=== PATIENT | male | born 1950 | race Caucasian/White ===

== ENCOUNTER 2020-06-10 08:11 | Day surgery (SDC) | payer MEDICARE, SELFPAY ==
[2020-06-04 09:33] LABS: Hematocrit 43.1 % (40-54); Hemoglobin 14.3 g/dL (13.0-16.5); Mean Corp Hgb Conc 33.2 g/dL (32-36); Mean Corpuscular Hgb 31.4 pg (27.0-32.0); Mean Corpuscular Volume 94.5 fL (80-94); Mean Platelet Vol. 10.9 fl (6.2-12.0); Platelet Count 238 K/mm3 (150-450); RBC Distribution Width CV 12.3 % (11.6-14.6); RBC Distribution Width SD 42.6 fl (35.1-43.9); Red Blood Count 4.56 M/mm3 (4.6-6.2); White Blood Count 9.2 K/mm3 (4.4-11.0)
[2020-06-04 09:39] LABS: Partial Thromboplast Time 31.4 Seconds (24.1-36.2)
--- NOTE | 2020-06-04 10:54 | EKG12_ITS ---
Test Reason : PREOP Blood Pressure : / mmHG Vent. Rate : 076 BPM Atrial Rate : 076 BPM P-R Int : 120 ms QRS Dur : 084 ms QT Int : 384 ms P-R-T Axes : 065 043 055 degrees QTc Int : 432 ms Normal sinus rhythm Normal ECG Confirmed by LYNN WISE, PUJA ([id number]), writer editor JODI FORTE ([id number]) on 06/05/2020 1:11:04 PM Referred By: Vick Reed Confirmed By:ETHEL BAILEY MD
--- NOTE | 2020-06-10 | BLB_PTH ---
PATIENT: JAYLA SCHWARZ LOC: [facility] [place] U[place][id number] AGE/SX: 70/M ROOM: RE06/10/[address]: Dr. Vick Reed MD : 1950 BED: DIS: 06/10/2020 SPEC #: [id number] RECD: 06/11/20 08:43 STATUS: YOLIS REHema #: [id number] VANNESSA: 06/10/20 00:[address]: Vick Reed DEPT: SURGICAL PATHOLOGY RECD BY: Sintia Vasquez ENTERED: 06/11/20 08:45 SP TYPE: TURB OTHR DR: Dr. Haresh Almanzar MD Tissues: Urinary bladder, NOS Procedures: Surgery Specimen Level V HEADER OPERATION: Cysto, transurethral resection bladder, Olympus PRE-OP DIAGNOSIS: Bladder mass TISSUE SUBMITTED: Bladder tumor MICROSCOPIC DIAGNOSIS Bladder tumor, TUR: Papillary urothelial carcinoma. See cancer summary in the comment section. SJ:josie 06/12/20 COMMENT BLADDER CANCER (TUR) SUMMARY Procedure: Transurethral resection of bladder (TURBT) Tumor site: Not specified Histologic type: Papillary urothelial carcinoma, noninvasive Histologic grade: Low grade (2/3) Tumor configuration: Papillary Muscularis propria presence: Muscularis propria (detrusor muscle) is present and free of tumor. Tumor extension: Noninvasive papillary carcinoma. Additional pathologic findings: Chronic inflammation. The above summary is in compliance with [employer] [employer] (CAP) Cancer Protocols Checklist and [place] Joint Committee on Cancer (AJCC), Staging Manual, 8th Ed. MICROSCOPIC DESCRIPTION Slides are reviewed. GROSS DESCRIPTION Received in fixative is one container labeled with the patient's name and designated bladder tumor. The specimen consists of multiple irregular fragments of light medley soft tissue that in aggregate measure 2.5 x 1 x 0.2 cm. The specimen is totally submitted in one cassette. / MELCHOR:josie 06/11/20 TC:0 CPT: 19273
--- NOTE | 2020-06-10 07:54 | PCM.HP.STD ---
Problem List (1) Bladder mass Status: Acute History of Present Illness Date of Admission: 06/10/20 Chief Complaint: Large bladder mass The patient is a 70 year old male with a history of smoking who on CAT scan was found to have a large bladder mass today we will proceed with transurethral resection of a bladder tumor Past Medical History Allergies No Known Allergies Allergy (Verified 06/03/20 08:18) Home Medications: Ambulatory Orders Medication Instructions Recorded Phenytoin Na [Dilantin] 200 mg PO QHS 11/07/14 Phenytoin Na [Dilantin] 300 mg PO BREAKFAST 11/07/14 Atorvastatin Calcium [Lipitor] 20 mg PO QHS 06/03/20 Surgical History: no surgical history Smoking Status: Former smoker Tobacco Use: Non-smoker Review of Systems Constitutional: Denies: Chills, Fever, Weight Change HEENT: Denies: Head Aches, Sinus Congestion, Sinus Drainage Cardiovascular: Denies: Chest Pain, Palpitations Respiratory: Denies: Cough, Shortness of breath at rest, Sputum production Gastrointestinal: Denies: Abdominal Pain, Nausea, Vomiting Genitourinary: Denies: Dysuria Musculoskeletal: Denies: Joint Pain, Joint Tenderness Skin: Denies: Rash, Wounds Neurological: Denies: Numbness, Tingling, Focal weakness Psychiatric: Denies: Anxiety, Depression, Homicidal Ideations, Suicidal Ideations Hematologic/ Lymphatic: Denies: Easy Bruising, Easy Bleeding VTE Information - Inpt Only VTE Present on Admission: No Patient Problems: Active and Suspected Problems Bladder mass (Acute) - Physical Exam General: Alert, Oriented x3, Cooperative HEENT: Atraumatic, PERRLA, EOMI, Normocephalic Neck: Supple, No JVD, Negative Carotid Bruits Lungs: Clear to auscultation, Normal air movement Cardiovascular: Regular rate, No murmurs Abdomen: Bowel Sounds Present, Soft, Non Tender Extremities: No edema, Capillary Refill Less than 3 Seconds Skin: No rashes, No breakdown Musculoskeletal: No Tenderness to Palpation of Joints or Extremities Neurological: Cranial nerves II-XII grossly intact Psych/Mental Status: Normal Affect, Appropriate Microbiology Past 72 Hours 06/09/20 09:45 Interface Orders SARS-CoV-2 Antigen (Rapid) - Final Current Medications Mitomycin 40 mg/ Sodium (Chloride 40 ml/ N/A) 40 mls @ 2,400 mls/hr INSTILLAT X1 ONE Stop: 06/10/20 11:16 Assessment/Plan All Active Problems Bladder mass (Acute) Plan to proceed with transurethral resection of a bladder tumor
--- NOTE | 2020-06-10 07:57 | DCINST_ITS ---
Discharge Diet: No Restrictions Discharge Activity: Return to Normal Activity, May Not Drive - for 2 days., May not drive while taking narcotic pain medications. Additional Activity Instructions:: f you have a catheter, remove on ___. If you have any problems after catheter is removed, call [phone] and ask for your doctor to be paged. Please be aware that pain medications may cause nausea. You should typically eat light foods as you take your pain medication. Pain medication may cause constipation, if this is a problem for you, please discuss with your doctor. Call your doctor if your incision/area has: Continuous Slow Oozing Suture Line Care: Avoid Pulling/Pushing, Avoid Pinching/Bending Allergies/Adverse Reactions: Allergies No Known Allergies Allergy (Verified 06/03/20 08:18) Medications to take at Discharge Phenytoin Na [Dilantin] 200 mg PO QHS 11/07/14 Phenytoin Na [Dilantin] 300 mg PO BREAKFAST 11/07/14 Atorvastatin Calcium [Lipitor] 20 mg PO QHS 06/03/20 Ciprofloxacin [Cipro] 500 mg PO BID #14 tab 06/10/20 Ibuprofen [Motrin] 600 mg PO Q6H PRN PRN 7 Days #20 tab 06/10/20 The following prescriptions were given: Ciprofloxacin [Cipro] 500 mg PO BID #14 tab Transmission Status: Pending to [facility] [place] [address] Ibuprofen [Motrin] 600 mg PO Q6H PRN PRN 7 Days #20 tab PRN Reason: Pain 1-10 Or Fever Transmission Status: Pending to [facility] [place] [address] Primary Care Physician: Haresh Almanzar MD [Primary Care Provider] - Test Results: Test results from this visit will be discussed in further detail at your follow- up appointment, if applicable. Please Follow Up With: Vick Reed MD When: in 2 weeks, please call to make an appointment.
[2020-06-10 09:35] VITALS: BP 133/91; PULSE 97; RESP 16; TEMP 36.2; O2SAT 100; BMI 24.6
[2020-06-10] MEDS: Lactated Ringers 1,000 ML 100 ML IV (09:53)
[2020-06-10] MEDS: Cefazolin 2 GM in 0.9% Normal Saline 100 ML IV (12:48)
[2020-06-10] MEDS: Lubricating Jelly 60 GM Tube 30 GM TOPICAL (13:03)
--- NOTE | 2020-06-10 13:17 | PCM.OPRPT ---
Problem List (1) Bladder mass Status: Acute Report of Operation Date of Procedure: 06/10/20 Pre-Operative Diagnosis: Bladder tumor Post-Operative Diagnosis: Same Surgery/Procedure Performed:: Transurethral section of bladder tumor instillation mitomycin-C Description of Surgical Findings:: 70-year-old male was found to have a tumor in his bladder on cystoscopy and also on CAT scan. He was brought to the operating room underwent general anesthesia penis and testicles were prepped and draped in usual sterile fashion I went into the bladder the 24 Malag[place] noncontinuous flow Olympus resectoscope I inspected the entire bladder the trigone was clear the left and right ureter orifice were identified he had a tumor on the left lateral wall the bladder was measured using the loop, the tumor was 4 cm in size. He then underwent paralysis. I then resected the tumor with the resectoscope down to the muscle fibers it appeared to be a noninvasive bladder tumor. I then cauterized the base of resection extensively. The left and right ureter orifice were not injured or involved in the tumor resection. I then asked Laya to all the chips of the bladder handed off as a specimen. And then I put a catheter in the bladder and instilled 50 cc of mitomycin-C into the bladder and the patient's bladder was then left full with the mitomycin and he was awakened from anesthetic taken back to PACU in good condition. Type of Anesthesia:: General Drains: none - Admit VTE Documentation VTE Present on Admission: No VTE Mechan Device Prophylaxis: SCD's
[2020-06-10 13:30] VITALS: BP 133/91; BP 156/79; PULSE 67; RESP 18; TEMP 36.3; O2SAT 100
[2020-06-10 13:45] VITALS: BP 133/91; BP 162/124; PULSE 66; RESP 18; O2SAT 99
[2020-06-10 14:00] VITALS: BP 133/91; BP 164/78; PULSE 71; RESP 18; O2SAT 100
[2020-06-10 14:06] VITALS: BP 133/91; BP 167/75; PULSE 71; RESP 18; TEMP 36.2; O2SAT 100
[2020-06-10 14:53] VITALS: BP 132/94; BP 133/91; PULSE 87; RESP 16; TEMP 36.2; O2SAT 100
== END 2020-06-10 14:53 | disposition home or self-care (01) ==
LOC: SDC 08:13 → AC 08:13
PROVIDERS: Anesthesiology; PCP Family Medicine; Referring Provider Urology; Visit Provider Urology
PROC: 0T5B8ZZ Destruction of Bladder, Via Natural or Artificial Opening Endoscopic (ICD-10-PCS; CPT 51720; principal; 2020-06-10 11:05)
DX: C67.9 Malignant neoplasm of bladder, unspecified (principal); G47.33 Obstructive sleep apnea (adult) (pediatric); E78.5 Hyperlipidemia, unspecified; Z82.49 Family history of ischemic heart disease and other diseases of the circulatory system; G40.909 Epilepsy, unspecified, not intractable, without status epilepticus; Z87.891 Personal history of nicotine dependence
CPT/HCPCS: 00912; 51720; 52235; 36415; 85027; 85730; 87426; 88307; 93005; C9803; J7120; J2405; J3490; J9280

== ENCOUNTER → 2021-01-21 10:54 | Outpatient (CLI) | payer MEDICARE, SELFPAY ==
--- NOTE | 2021-01-21 09:17 | CYSPIN_PTH ---
PATIENT: JAYLA SCHWARZ LOC: [facility] U#:[id number] AGE/SX: 75/M ROOM: RE01/21/[address]: Dr. Vick Reed MD : 1950 BED: DIS: SPEC #: [id number] RECD: 01/21/21 12:40 STATUS: YOLIS OSMAN #: [id number] VANNESSA: 01/21/21 09:[address]: Vick Reed DEPT: CYTOLOGY RECD BY: Shakila Sadler ENTERED: 01/21/21 12:40 SP TYPE: CYSPIN FL OTHR DR: Dr. Haresh Almanzar MD Tissues: Urine Procedures: Pap Stain (control) Special Stain Group II Cytospin Fluid HEADER OPERATION: Not noted PRE-OP DIAGNOSIS: Malignant neoplasm of bladder TISSUE SUBMITTED: Urine for cytology DIAGNOSIS CYTOLOGY Urine for cytology (cytospin): Atypical urothelial cells suspicious for urothelial neoplasm. AM:josie 01/22/2021 COMMENT Reference is made to the patient?s previous urinary bladder, TUR ([id number]) in which papillary urothelial carcinoma (low grade) was identified. Case has been reviewed in consultation with Dr. Seals who concurs with the above diagnosis. IDC:SJ CYTOLOGY STUDY Slides are reviewed. CYTOLOGY GROSS Received is 100 ml of light yellow cloudy fluid labeled with the patient's name and and designated per the requisition as urine. Submitted for cytology preparation. / josie 01/21/2021 TC:? CPT: 79489
[2021-01-21 11:33] LABS: Cytology, Body Fluid / CSF SEE PATHOLOGY REPORT
== END ==
PROVIDERS: PCP Family Medicine; Visit Provider Urology
DX: C67.2 Malignant neoplasm of lateral wall of bladder (principal)
CPT/HCPCS: 88108; 88313

== ENCOUNTER 2021-03-10 08:55 | Day surgery (SDC) | payer MEDICARE, SELFPAY ==
[2021-03-04 11:13] LABS: Hematocrit 41.9 % (40-54); Mean Corp Hgb Conc 33.4 g/dL (32-36); Mean Corpuscular Hgb 31.5 pg (27.0-32.0); Mean Corpuscular Volume 94.2 fL (80-94); Mean Platelet Vol. 11.2 fl (6.2-12.0); Platelet Count 185 K/mm3 (150-450); RBC Distribution Width CV 12.9 % (11.6-14.6); RBC Distribution Width SD 44.4 fl (35.1-43.9); Red Blood Count 4.45 M/mm3 (4.6-6.2); White Blood Count 8.1 K/mm3 (4.4-11.0)
[2021-03-04 11:26] LABS: Partial Thromboplast Time 34.8 Seconds (24.1-36.2)
[2021-03-10 09:20] VITALS: BP 147/78; PULSE 77; RESP 18; TEMP 36.1; O2SAT 100; BMI 26.4
[2021-03-10] MEDS: Lactated Ringers 1,000 ML 100 ML IV (09:20)
--- NOTE | 2021-03-10 10:55 | BLB_PTH ---
PATIENT: JAYLA SCHWARZ LOC: [place] U#:[id number] AGE/SX: 71/M ROOM: RE03/10/[address]: Dr. Vick Reed MD : 1950 BED: DIS: 03/10/2021 SPEC #: [id number] RECD: 03/10/21 15:12 STATUS: YOLIS BREWER #: [id number] VANNESSA: 03/10/21 10:[address]: Vick Reed DEPT: SURGICAL PATHOLOGY RECD BY: Shakila Sadler ENTERED: 03/11/21 12:27 SP TYPE: TURB OTHR DR: Dr. Haresh Almanzar MD Tissues: Urinary bladder, NOS Procedures: Surgery Specimen Level V HEADER OPERATION: Bladder biopsy PRE-OP DIAGNOSIS: Bladder mass TISSUE SUBMITTED: Multiple bladder biopsies MICROSCOPIC DIAGNOSIS Bladder, biopsy: Fragments of urothelial mucosa with epithelial hyperplasia and mild atypia. Negative for malignancy. See comment. SJ:josie 03/12/2021 COMMENT Detrusor muscle is present in the specimen. Please make reference to previous specimens ([id number]) bladder tumor, TUR with diagnosis of ?papillary urothelial carcinoma? and ([id number]) urine for cytology with diagnosis of ?atypical urothelial cells suspicious for urothelial neoplasm.? Case has been reviewed in consultation with Dr. Taylor who concurs with the above diagnosis. IDC:AM MICROSCOPIC DESCRIPTION Slides are reviewed. GROSS DESCRIPTION Received in fixative is one container labeled with the patient's name and designated multiple bladder biopsies. The specimen consists of multiple irregular fragments of medley soft tissue that in aggregate measure 0.5 x 0.1 x 0.1 cm. The specimen is totally submitted in one cassette. / MELCHOR:josie 03/11/21 TC:5 CPT: 37747
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
[2021-03-10] MEDS: Cefazolin 2 GM in 0.9% Normal Saline 100 ML IV (12:42)
[2021-03-10] MEDS: Lubricating Jelly 60 GM Tube 30 GM TOPICAL (12:55)
--- NOTE | 2021-03-10 13:11 | PCM.DC ---
Discharge Instructions Diet Discharge Diet: No restrictions Activity Discharge Activity: Return to Normal Activity and May Not Drive (while taking narcotic pain medications.) Dressing / Incision Call your doctor if you observe: Fever of 101 or Higher Follow Up Care Please Follow Up With: Vick Reed MD When: Call [phone] for an appointment Test Results: Test results from this visit will be discussed in further detail at your follow-up appointment, if applicable. Discharge Plan Admission Primary Reason for Your Visit: bladder biopsy and fulguration Attending Provider: Vick Reed Primary Care Provider: Haresh Almanzar Discharge Orders/Prescriptions Prescriptions: New ciprofloxacin HCl [Cipro] 500 mg tablet 500 mg PO BID Qty: 10 RF: 0 Continued phenytoin sodium extended 100 MG capsule 300 mg PO BREAKFAST RF: 0 phenytoin sodium extended 100 MG capsule 200 mg PO QHS RF: 0 atorvastatin 20 MG tablet 20 mg PO QHS RF: 0 Referrals / Follow Up: Haresh Almanzar MD [Primary Care Provider] - Vick Reed MD [STAFF PHYSICIAN] - Disposition Disposition (needs filled in before D/C Order can be placed): Home, Self Care
--- NOTE | 2021-03-10 13:12 | PCM.OPRPT ---
Report of Operation Date of Procedure: 03/10/21 Pre-Operative Diagnosis: History of bladder cancer abnormal cytology multiple bladder lesions Post-Operative Diagnosis: Same multiple bladder lesions Surgery/Procedure Performed:: Cystoscopy bladder biopsy of multiple sites in the bladder and cauterization of multiple sites in the bladder Description of Surgical Findings:: Patient has a history of bladder cancer underwent resection about 6 months ago in the office there was no clear tumors when I looked inside the bladder but on cytology they had atypical suspicious looking cytologies were taken back to surgery today to look of the bladder. Patient was taken back to the operating room at the smooth induction of general anesthesia he was placed in dorsolithotomy position. The penis and testicles were prepped and draped in usual sterile fashion when the bladder with a 21 Kiny[place]anda rigid cystourethroscope inspected the entire bladder there were no visible tumors but there was small little reddish lesions in multiple areas throughout the bladder very concerning for satellites sites of bladder cancer so biopsy was taken of 3 different sites all put on the same Telfa and sent off to pathology I then went and cauterize all these biopsy sites I then went to the bladder and the selectively cauterized as many these lesions that I could see using both white light and blue light cystoscopy. At the end of the session there was no bleeding patient's bladder was drained anesthetic was reversed taken back to PACU in good condition will follow up to review the biopsies. Type of Anesthesia: General Drains: none Admit VTE Documentation VTE Present on Admission: No VTE Mechan Device Prophylaxis: SCD's
[2021-03-10 13:24] VITALS: BP 110/73; BP 147/78; PULSE 64; RESP 16; TEMP 36.1; O2SAT 97
[2021-03-10 13:30] VITALS: BP 125/75; BP 147/78; PULSE 70; RESP 16; O2SAT 98
[2021-03-10 13:44] VITALS: BP 140/72; BP 147/78; PULSE 66; RESP 16; O2SAT 100
[2021-03-10 13:46] VITALS: BP 136/70; BP 147/78; PULSE 64; RESP 16; TEMP 36.1; O2SAT 97
[2021-03-10 14:20] VITALS: BP 147/78; BP 163/74; PULSE 79; RESP 16; TEMP 36.3; O2SAT 100
== END 2021-03-10 14:26 | disposition home or self-care (01) ==
LOC: SDC 08:56 → AC 08:56
PROVIDERS: Anesthesiology; PCP Family Medicine; Referring Provider Urology; Visit Provider Urology
PROC: 0TBB8ZZ Excision of Bladder, Via Natural or Artificial Opening Endoscopic (ICD-10-PCS; CPT 52204; principal; 2021-03-10 10:45)
DX: N32.9 Bladder disorder, unspecified (principal); Z85.51 Personal history of malignant neoplasm of bladder; G40.909 Epilepsy, unspecified, not intractable, without status epilepticus; F17.210 Nicotine dependence, cigarettes, uncomplicated
CPT/HCPCS: 52204; 36415; 85027; 85730; 88307; J7120; J2405

== ENCOUNTER 2021-09-07 11:42 | Emergency (ER) | payer MEDICARE, SELFPAY ==
[2021-09-07 11:42] VITALS: BP 95/84; PULSE 88; RESP 18; TEMP 35.6; O2SAT 97; BMI 27.4
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
--- NOTE | 2021-09-07 12:28 | RAD_ITS ---
STUDY: X-RAY - LEFT ANKLE REASON FOR EXAM: Male, 71 years old. Pain following a fall. TECHNIQUE: 3 view(s) of the ankle. COMPARISON: None. FINDINGS: Nondisplaced oblique fracture of the distal fibular metaphysis. Nondisplaced transverse fracture of the medial malleolus. Mild asymmetry of the ankle mortise. Normal visualized talus and calcaneus. The visualized subtalar, talonavicular, calcaneocuboid and tarsal articulations are normal. Soft tissue swelling. RAD/Ankle min 3 Views IMPRESSION: Nondisplaced oblique fracture of the distal fibular metaphysis with a transverse fracture of the medial malleolus. Asymmetry of the ankle mortise. Soft tissue swelling. Electronically Signed: Sai Pizarro MD at 12:56 EST ,
[2021-09-07] MEDS: HYDROcodone Bitartrate/Apap 5/325 Tablet PO (13:52)
== END 2021-09-07 14:41 | disposition home or self-care (01) ==
PROVIDERS: Emergency Provider Emergency Medicine; PCP Family Medicine; Visit Provider Emergency Medicine
DX: S82.52XA Displaced fracture of medial malleolus of left tibia, initial encounter for closed fracture (principal); W00.0XXA Fall on same level due to ice and snow, initial encounter; F17.210 Nicotine dependence, cigarettes, uncomplicated
CPT/HCPCS: 73610; 99284

== ENCOUNTER 2021-09-24 16:33 | Outpatient (CLI) | payer MEDICARE, SELFPAY ==
[2021-09-24 17:45] LABS: Absolute Lymphocyte Count 2.68 X10^3/uL (0.83-4.51); Absolute Neutrophil Count 7.4 X10^3/uL (2.0-7.7); Basophil# 0.04 X10^3/uL; Basophil% 0.4 % (0-1); Eosinophil# 0.11 X10^3/uL; Hematocrit 38.9 % (40-54); Hemoglobin 13.2 g/dL (13.0-16.5); Lymphocyte # 2.68 X10^3/ul (0.83-4.51); Mean Corp Hgb Conc 33.9 g/dL (32-36); Mean Corpuscular Hgb 31.3 pg (27.0-32.0); Mean Corpuscular Volume 92.2 fL (80-94); Mean Platelet Vol. 11.4 fl (6.2-12.0); Monocyte# 0.94 X10^3/uL; Monocyte% 8.4 % (0-10); NRBC Flagged by Analyzer 0 % (0-5); Neutrophil # 7.36 X10^3/uL (2.7-7.7); Neutrophil % 65.8 % (47-70); Platelet Count 274 K/mm3 (150-450); RBC Distribution Width SD 43.5 fl (35.1-43.9); Red Blood Count 4.22 M/mm3 (4.6-6.2); White Blood Count 11.2 K/mm3 (4.4-11.0)
[2021-09-24 18:09] LABS: ALB/GLOB Ratio 0.9 RATIO (0.9-2.4); AST(SGOT) 9 U/L (15-37); Alanine Aminotransfer ALT/SGPT 22 U/L (16-61); Albumin, Serum 3.7 g/dL (3.2-5.0); Alkaline Phosphatase 212 U/L (45-117); Anion Gap 7 (5-15); BUN 10 mg/dL (7-18); BUN/Creat Ratio 15.4 RATIO (10-20); Calcium,Total 9.3 mg/dL (8.5-10.1); Chloride 106 mmol/L (98-107); Creatinine, Serum 0.65 mg/dL (0.70-1.30); EST Glomerular Filtration Rate 129 mL/min (>60); Est Glom Filt Rate - Afr Amer 156 mL/min (>60); Glucose 101 mg/dL (74-106); Protein, Total 7.7 g/dL (6.4-8.2); Sodium Level 138 mmol/L (136-145)
[2021-09-24 18:23] LABS: Phenytoin (Dilantin) Level 7.9 mL (10.0-20.0)
== END 2021-09-24 23:59 | disposition home or self-care (01) ==
LOC: MTLAB 16:35
PROVIDERS: PCP Family Medicine; Referring Provider Family Medicine; Visit Provider Family Medicine
DX: Z01.818 Encounter for other preprocedural examination (principal)
CPT/HCPCS: 36415; 80053; 80185; 85025

== ENCOUNTER 2024-09-18 17:49 | Inpatient (IN) | payer MEDICARE, SELFPAY ==
[2024-09-18] VITALS (11 sets, daily range): BP systolic 143–196; BP diastolic 73–91; PULSE 85–102; RESP 13–18; TEMP 36.4–37.1; O2SAT 97–100; BMI 24.7; BMI 27.3
--- NOTE | 2024-09-18 17:54 | CT_ITS ---
PROCEDURE: STROKE BRAIN/HEAD WITHOUT CONT REASON FOR EXAM: Neurological deficit. TECHNIQUE: Head CT was obtained without IV contrast. Multiplanar reformats were generated. One or more dose reduction techniques were used (e.g., Automated exposure control, adjustment of the mA and/or kV according to patient size, use of iterative reconstruction technique). COMPARISON: None. FINDINGS: No acute intracranial hemorrhage or extra-axial collection. Mild encephalomalacia is noted in the high parietal lobes, right worse than left. Ramos-white matter differentiation is otherwise normal and there are no CT findings for acute territorial infarct. Ventricles are normal in size and configuration, without midline shift or mass effect. Calcifications are noted in the carotid and right vertebral arteries. Calvarium is intact. Imaged globes and orbits are normal. Imaged paranasal sinuses and mastoid air cells are clear. CT/STROKE Brain/Head without Cont IMPRESSION: NO ACUTE INTRACRANIAL HEMORRHAGE. NO CT FINDINGS FOR TERRITORIAL INFARCT AT TH IS TIME. MILD ENCEPHALOMALACIA IN THE HIGH PARIETAL LOBES BILATERALLY. Reading Location: [id number]
--- NOTE | 2024-09-18 18:00 | CT_ITS ---
PROCEDURE: STROKE CTA HEAD AND NECK W/CON REASON FOR EXAM: Neurological deficit. Acute stroke suspected. TECHNIQUE: CTA imaging of the head and neck from the aortic arch to the skull vertex with intravenous contrast. 3D reconstructions. Percentage of carotid stenosis is based on NASCET criteria. Dose reduction techniques include automated exposure control and/or adjustment of mA and/or kv according to patient size and or use of iterative reconstructive technique CONTRAST: 100 milliliters Isovue 370 COMPARISON: None. FINDINGS: CTA NECK: Aortic Arch: Normal size and branching pattern. No significant atherosclerotic plaque. Brachiocephalic and Subclavians: Unremarkable RIGHT Carotid: Right CCA: Mildly atherosclerotic without significant stenosis Right ICA: 75 percent stenosis due to calcified atherosclerotic plaque Maximum stenosis (NASCET): 75 % Right ECA: Unremarkable. LEFT Carotid: Left CCA: Minimal atherosclerosis Left ICA: Mild atherosclerosis at the origin Maximum stenosis (NASCET): <50 percent % Left ECA: Unremarkable. Vertebrals: Codominant. Arise from the subclavians. Both vertebrals form the basilar. RIGHT Vertebral: Mild atherosclerosis at the origin with less than 50 percent stenosis. LEFT Vertebral: Approximately 75 percent stenosis at the origin due to calcified atherosclerotic plaque CTA HEAD: No intracranial aneurysms or large vascular malformations are identified. Anterior cerebral arteries: Unremarkable. Middle cerebral arteries: Unremarkable. Basilar artery: Unremarkable. Posterior cerebral arteries: Unremarkable. Other major branches of the posterior circulation: Unremarkable. Major venous structures: Unremarkable. Other findings: Probable mucocele in the right lateral oropharynx measuring 1.6 x 1.1 centimeters lung apices are emphysematous and clear. Bones are unremarkable. Asymmetric appearance to the vocal folds CT/STROKE CTA Head AND Neck W/Con IMPRESSION: RIGHT CAROTID: 75 PERCENT STENOSIS DUE TO CALCIFIED ATHEROSCLEROTIC PLAQUE. LEFT CAROTID: LESS THAN 50 PERCENT STENOSIS VERTEBRALS: ATHEROSCLEROTIC AT THE ORIGINS, UP TO 75 PERCENT STENOSIS ON THE LE FT SIDE. INTRACRANIAL: NEGATIVE FOR LARGE VESSEL OCCLUSION. ASYMMETRIC APPEARANCE TO THE VOCAL FOLDS. PROBABLE MUCOCELE IN THE RIGHT POSTE RIOR LATERAL PHARYNGEAL WALL MEASURING 1.6 X 1.1 CENTIMETERS. CORRELATION WITH DIRECT VISUALIZATION RECOMMENDED. Reading Location: [id number]
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
[2024-09-18 18:24] LABS: Absolute Lymphocyte Count 1.81 X10^3/uL (0.83-4.51); Basophil# 0.02 X10^3/uL; Basophil% 0.2 % (0-1); Eosinophil# 0.04 X10^3/uL; Eosinophils% 0.5 % (0-5); Hematocrit 37.2 % (40-54); Hemoglobin 12.9 g/dL (13.0-16.5); Lymphocyte # 1.81 X10^3/ul (0.83-4.51); Lymphocyte % 21.4 % (19-41); Mean Corp Hgb Conc 34.7 g/dL (32-36); Mean Corpuscular Hgb 31.8 pg (27.0-32.0); Mean Corpuscular Volume 91.6 fL (80-94); Mean Platelet Vol. 11.1 fl (6.2-12.0); Monocyte# 0.59 X10^3/uL; NRBC Flagged by Analyzer 0 % (0-5); Neutrophil # 5.97 X10^3/uL (2.7-7.7); Neutrophil % 70.5 % (47-70); Platelet Count 188 K/mm3 (150-450); RBC Distribution Width CV 12.9 % (11.6-14.6); RBC Distribution Width SD 43.3 fl (35.1-43.9); Red Blood Count 4.06 M/mm3 (4.6-6.2); White Blood Count 8.5 K/mm3 (4.4-11.0)
[2024-09-18 18:38] LABS: Partial Thromboplast Time 28.2 Seconds (24.1-36.2)
[2024-09-18 18:41] LABS: International Normalized Ratio 1.1; Prothrombin Time (Protime)PT. 14.6 SECONDS (11.7-14.9)
[2024-09-18 18:46] LABS: Anion Gap 6 (5-15); BUN 17 mg/dL (7-18); BUN/Creat Ratio 21.7 RATIO (10-20); Calcium,Total 8.8 mg/dL (8.5-10.1); Chloride 108 mmol/L (98-107); Creatinine, Serum 0.78 mg/dL (0.70-1.30); EST Glomerular Filtration Rate 103 mL/min (>60); Est Glom Filt Rate - Afr Amer 125 mL/min (>60); Estimated Creatinine Clearance 71.54 ml/min; Glucose 130 mg/dL (74-106); Potassium 4.1 mmol/L (3.5-5.1); Sodium Level 138 mmol/L (136-145); Troponin-I HS 6 pg/mL (3.0-78.0)
--- NOTE | 2024-09-18 19:12 | RAD_ITS ---
PROCEDURE: CHEST 1 VIEW REASON FOR EXAM: Stroke. Neuro deficit. TECHNIQUE: Frontal view of the chest. COMPARISON: None available. FINDINGS: Lungs are mildly hyperinflated and clear. No pleural effusion or pneumothorax. Normal heart size. Mildly tortuous and atherosclerotic aorta. No acute osseous or upper abdominal abnormality is seen. RAD/Chest 1 View IMPRESSION: HYPERINFLATED LUNGS. NO ACUTE ABNORMALITY. Reading Location: [id number]
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
--- NOTE | 2024-09-18 21:07 | ECHOCS_ITS ---
Reason For Study Reason For Study: TIA/CVA Procedure This was a 2D Doppler, Color Flow transthoracic echocardiogram. The study was technically difficult. Contrast injection was performed. Exam performed portable in patient room. Left Ventricle Normal size and thickness. Left ventricular systolic function is normal. The left ventricular ejection fraction is 65 %. Normal diastology for age. Right Ventricle Normal right ventricle. Atria The left and right atria are normal. Mitral Valve The mitral valve is structurally normal. No prolapse or stenosis seen. Tricuspid Valve Trivial tricuspid valve insufficiency. Unable to estimate RV systolic pressure due to insufficient tricuspid regurgitant envelope. Aortic Valve Trisinus/trileaflet aortic valve. Mild (1+) aortic valve insufficiency. Pulmonic Valve The pulmonic valve is not well visualized. Great Vessels Normal sized aortic root. Pericardium/Pleural No pericardial effusion. Medication Diluted definity 2.5ml given slow IV push to enhance endocardial definition. MMode/2D Measurements & Calculations LVIDd: 4.7 cm IVSd: 0.91 cm Ao root diam: 3.5 cm LVIDs: 3.1 cm LVPWd: 0.83 cm RVDd: 3.6 cm FS: 34.5 % LAV(MOD-bp): 33.3 ml LVAd ap4: 28.8 cm2 SV(MOD-sp4): 58.1 ml LAV(MOD-bp) Indexed: 18.6 ml/m2 LVLd ap4: 7.7 cm SI(MOD-sp4): 32.4 ml/m2 LAV(MOD-sp2): 36.2 ml EDV(MOD-sp4): 88.2 ml LAV(MOD-sp4): 28.5 ml EDV(sp4-el): 91.3 ml LVAs ap4: 14.1 cm2 LVLs ap4: 5.7 cm ESV(MOD-sp4): 30.1 ml ESV(sp4-el): 29.4 ml EF(MOD-sp4): 65.9 % EF(sp4-el): 67.8 % SV(sp4-el): 61.9 ml LA A4 area: 12.2 cm2 LA dimension(2D): 3.8 cm RA A4 area: 15.7 cm2 TAPSE: 2.0 cm Time Measurements MV dec time: 0.25 sec Doppler Measurements & Calculations MV E max sachin: 75.2 cm/sec Lat Peak E' Sachin: 5.1 cm/sec Med Peak E' Sachin: 7.1 cm/sec MV A max sachin: 79.1 cm/sec E/E' lat: 14.9 E/E' med: 10.6 MV E/A: 0.95 MV V2 max: 85.2 cm/sec MV P1/2t max sachin: 80.9 cm/sec Ao V2 max: 147.0 cm/sec MV max P.9 mmHg MV P1/2t: 87.2 msec Ao max P.6 mmHg MV V2 mean: 56.3 cm/sec MV dec slope: 271.8 cm/sec2 MV mean P.4 mmHg MVA(P1/2t): 2.5 cm2 MV V2 VTI: 22.7 cm AI max sachin: 374.3 cm/sec LV V1 max: 122.5 cm/sec AI max P.0 mmHg LV V1 max P.0 mmHg AI dec slope: 194.5 cm/sec2 LV V1 mean P.3 mmHg AI P1/2t: 563.7 msec LV V1 mean: 86.0 cm/sec LV V1 VTI: 26.8 cm ECHO/Echo Complete W/ Contrast Interpretation Summary The left ventricular ejection fraction is 65 %. Mild (1+) aortic valve insufficiency. Ordering Physician: Paulina Prieto Performed By: Atul Gonzalez RCS
[2024-09-18 21:12] LABS: Magnesium 2.3 mg/dL (1.6-2.6)
[2024-09-18] MEDS: Aspirin 300 MG Suppository RC (21:30)
[2024-09-18] MEDS: PHENYTOIN NA IV (21:43)
[2024-09-18] MEDS: NORMAL SALINE 0.9% IV (21:43)
--- NOTE | 2024-09-18 21:43 | PCM.HOSP.N ---
Hospitalist Note Patient with onset of approximately 20 second tonic-clonic seizure per discussion with our staff and daughter who is in room with no loss of bowel or bladder. Patient is currently postictal. Given this we will place on seizure precautions, continue plan for EEG and MRI with other lab workup as noted however at this time we will load with the thousand of Dilantin and continue his home IV dosing. Discussed this case with neurology specifically the neurologist who saw him in the ED and he agrees with all current interventions.
[2024-09-18 22:37] LABS: Phenytoin (Dilantin) Level 21.1 mL (10.0-20.0)
[2024-09-18] MEDS: 0.9% Normal Saline (1000mL) 1,000 ML 100 ML IV (23:36)
[2024-09-19 01:00] VITALS: BP 118/57; PULSE 82; RESP 18; TEMP 36.9; O2SAT 97
[2024-09-19] MEDS: Haloperidol Lactate 5 MG/ML Vial 1 MG IV (01:03)
[2024-09-19] MEDS: Phenytoin Na 100 MG/2 ML Vial 200 MG IV ×2 (01:04→21:24)
[2024-09-19 03:17] LABS: Bedside Glucose 177 mg/dL (74-106)
[2024-09-19 08:10] VITALS: O2SAT 92
[2024-09-19 08:41] LABS: Absolute Lymphocyte Count 1.19 X10^3/uL (0.83-4.51); Absolute Neutrophil Count 4.3 X10^3/uL (2.0-7.7); Basophil# 0.05 X10^3/uL; Basophil% 0.8 % (0-1); Eosinophil# 0.05 X10^3/uL; Eosinophils% 0.8 % (0-5); Hematocrit 41.1 % (40-54); Hemoglobin 13.6 g/dL (13.0-16.5); Lymphocyte # 1.19 X10^3/ul (0.83-4.51); Lymphocyte % 19.1 % (19-41); Mean Corp Hgb Conc 33.1 g/dL (32-36); Mean Corpuscular Hgb 31.3 pg (27.0-32.0); Mean Corpuscular Volume 94.7 fL (80-94); Monocyte# 0.56 X10^3/uL; NRBC Flagged by Analyzer 0 % (0-5); Neutrophil # 4.34 X10^3/uL (2.7-7.7); Neutrophil % 69.8 % (47-70); POSITIVE COUNT YES; RBC Distribution Width CV 12.8 % (11.6-14.6); RBC Distribution Width SD 44.9 fl (35.1-43.9); Red Blood Count 4.34 M/mm3 (4.6-6.2); White Blood Count 6.2 K/mm3 (4.4-11.0)
[2024-09-19 09:00] VITALS: BP 137/85; PULSE 76; RESP 18; TEMP 36.7; O2SAT 98
--- NOTE | 2024-09-19 09:00 | MRI_ITS ---
PROCEDURE: BRAIN WITHOUT CONTRAST REASON FOR EXAM: CVA; expressive aphasia; seizure; epilepsy. TECHNIQUE: Multiplanar, multisequence MRI of the brain without intravenous gadolinium-based contrast. CONTRAST: None COMPARISON: None. FINDINGS: Mild to moderate global parenchymal atrophy. No evidence of acute hemorrhage or infarction. No extra-axial blood or fluid collections. The paranasal sinuses are clear. The mastoid air cells are well aerated. The orbits are unremarkable. MRI/Brain without Contrast IMPRESSION: No acute intracranial abnormality. Reading Location: [place] [id number]
[2024-09-19] MEDS: Enoxaparin 40 MG/0.4 ML Syringe SC (09:09)
[2024-09-19] MEDS: Aspirin 300 MG Suppository RC (09:18)
[2024-09-19] MEDS: Phenytoin Na 100 MG/2 ML Vial 300 MG IV (09:25)
[2024-09-19 09:34] LABS: Differential Indicated SCAN CRITERIA MET
[2024-09-19 09:35] LABS: Platelet Estimate ADEQUATE (ADEQ)
[2024-09-19 09:50] LABS: ALB/GLOB Ratio 1.1 RATIO (0.9-2.4); AST(SGOT) 16 U/L (15-37); Alanine Aminotransfer ALT/SGPT 25 U/L (16-61); Albumin, Serum 3.6 g/dL (3.2-5.0); Alkaline Phosphatase 137 U/L (45-117); Anion Gap 9 (5-15); BUN 14 mg/dL (7-18); BUN/Creat Ratio 22.6 RATIO (10-20); Chloride 113 mmol/L (98-107); Cholesterol 141 mg/dL (200); Creatinine, Serum 0.62 mg/dL (0.70-1.30); EST Glomerular Filtration Rate 135 mL/min (>60); Est Glom Filt Rate - Afr Amer 164 mL/min (>60); Estimated Creatinine Clearance 74.91 ml/min; Globulin 3.2 g/dL (2.2-4.2); Glucose 124 mg/dL (74-106); High Density Lipoprotein 55 mg/dL; Potassium 4.4 mmol/L (3.5-5.1); Protein, Total 6.8 g/dL (6.4-8.2); Sodium Level 143 mmol/L (136-145); Triglycerides 105 mg/dL; Very Low Density Lipoprotein 21 mg/dL (5-40)
--- NOTE | 2024-09-19 11:40 | CASEMGMT ---
RN CM Face to Face with patient for initial transition planning/care coordination assessment. RN CM introduced self and role at [facility]. Patient lying in bed, alert and oriented, daughter at bedside. Patient willing to participate in assessment and is able to answer all questions appropriately. Care providers, pharmacy, and demographics verified. Strata: 2 PCP: Jenelle Specialists: Elle, ortho [facility]; Stephon, Vascular [facility]; Jas, thoracic surgeon [facility] Preferred Pharmacy:[facility] Insurance: [employer] [facility] Prescription Benefit: yes Living Will/HPOA: yes, daughter Brittanie Bar LNOK: daughters Living Arrangements: Patient resides at [facility] [place] [facility] in a 3rd floor apt with elevator. Patient states he is independent at home. Transportation: daughter DME/HHC: Patient has cane and cpap at home. Patient wishes to discharge home, will monitor for need for therapy at discharge, pending therapy evals. Patient states he has no further needs or concerns at this time. CM to follow for discharge planning needs that may arise. Disposition Plan: Patient to discharge home with family support and follow-up plans in place. Sophia MACIAS, RN, CM
--- NOTE | 2024-09-19 12:23 | CPS ---
Spoke with charge nurse, about the EEG being ordered as a series. She spoke with Dr Robert and stated that Dr Robert Dc'd the order for the series
[2024-09-19 12:26] VITALS: O2SAT 96
--- NOTE | 2024-09-19 14:10 | PN.NEURO_ITS ---
Objective Data Objective Data Vital Signs: Vital Signs Temp Pulse Resp BP Pulse Ox O2 Del Method 98.0 F 76 18 137/85 H 96 Room Air 09/19/24 09:00 09/19/24 09:00 09/19/24 09:00 09/19/24 09:00 09/19/24 12:26 09/19/24 12:26 Oxygen Delivery Method Room Air Weight: 72.2 kg Body Mass Index (BMI) 27.3 Intake & Output: Intake and Output for Last 24 Hours 09/17/24 09/18/24 09/19/24 23:59 23:59 23:59 Intake Total 120 / 120 1000 / 1000 Output Total 600 / 600 Balance 120 / 120 400 / 400 Lab / Micro Data 09/19/24 08:17 09/19/24 08:17 Labs: Laboratory Results - last 24 hr 09/18/24 18:14: WBC 8.5, RBC 4.06 L, Hgb 12.9 L, Hct 37.2 L, MCV 91.6, MCH 31.8, MCHC 34.7, RDW Std Deviation 43.3, RDW Coeff of Jalyn 12.9, Plt Count 188, MPV 11.1, Immature Gran % (Auto) 0.400, Neut % (Auto) 70.5 H, Lymph % (Auto) 21.4, [place] % (Auto) 7.0, Eos % (Auto) 0.5, Baso % (Auto) 0.2, Absolute Neuts (auto) 6.0, Absolute Lymphs (auto) 1.81, Nucleated RBC % 0, PT 14.6, INR 1.1, APTT 28.2, Sodium 138, Potassium 4.1, Chloride 108 H, Carbon Dioxide 25.0, Anion Gap 6, BUN 17, Creatinine 0.78, Estim Creat Clear Calc 71.54, Est GFR (MDRD) Af Amer 125, Est GFR (MDRD) Non-Af 103, BUN/Creatinine Ratio 21.7 H, Glucose 130 H, Calcium 8.8, Magnesium 2.3, Troponin I High Sens 6 09/18/24 21:18: POC Glucose 177 H 09/18/24 22:09: Phenytoin 21.1 H 09/19/24 08:17: WBC 6.2, RBC 4.34 L, Hgb 13.6, Hct 41.1, MCV 94.7 H, MCH 31.3, MCHC 33.1, RDW Std Deviation 44.9 H, RDW Coeff of Jalyn 12.8, Plt Count TNP, MPV 12.0, Immature Gran % (Auto) 0.500, Neut % (Auto) 69.8, Lymph % (Auto) 19.1, [place] % (Auto) 9.0, Eos % (Auto) 0.8, Baso % (Auto) 0.8, Absolute Neuts (auto) 4.3, Absolute Lymphs (auto) 1.19, Nucleated RBC % 0, Platelet Estimate ADEQUATE, Sodium 143, Potassium 4.4, Chloride 113 H, Carbon Dioxide 21.0, Anion Gap 9, BUN 14, Creatinine 0.62 L, Estim Creat Clear Calc 74.91, Est GFR (MDRD) Af Amer 164, Est GFR (MDRD) Non-Af 135, BUN/Creatinine Ratio 22.6 H, Glucose 124 H, H emoglobin A1c 6.0 H, Calcium 9.0, Total Bilirubin 0.20, AST 16, ALT 25, Alkaline Phosphatase 137 H, Total Protein 6.8, Albumin 3.6, Globulin 3.2, Albumin/Globulin Ratio 1.1, Triglycerides 105, Cholesterol 141, LDL Cholesterol 65, VLDL Cholesterol 21, HDL Cholesterol 55, TSH 0.870 Radiography Diagnostic Testing: Radiology Impression Brain CT 09/18/24 17:54 IMPRESSION: NO ACUTE INTRACRANIAL HEMORRHAGE. NO CT FINDINGS FOR TERRITORIAL INFARCT AT THIS TIME. MILD ENCEPHALOMALACIA IN THE HIGH PARIETAL LOBES BILATERALLY. Reading Location: [facility] Head/Neck CTA 09/18/24 18:00 IMPRESSION: RIGHT CAROTID: 75 PERCENT STENOSIS DUE TO CALCIFIED ATHEROSCLEROTIC PLAQUE. LEFT CAROTID: LESS THAN 50 PERCENT STENOSIS VERTEBRALS: ATHEROSCLEROTIC AT THE ORIGINS, UP TO 75 PERCENT STENOSIS ON THE LEFT SIDE. INTRACRANIAL: NEGATIVE FOR LARGE VESSEL OCCLUSION. ASYMMETRIC APPEARANCE TO THE VOCAL FOLDS. PROBABLE MUCOCELE IN THE RIGHT POSTERIOR LATERAL PHARYNGEAL WALL MEASURING 1.6 X 1.1 CENTIMETERS. CORRELATION WITH DIRECT VISUALIZATION RECOMMENDED. Reading Location: [id number] Chest X-Ray 09/18/24 19:12 IMPRESSION: HYPERINFLATED LUNGS. NO ACUTE ABNORMALITY. Reading Location: [id number] Echocardiogram 09/18/24 21:07 Interpretation Summary The left ventricular ejection fraction is 65 %. Mild (1+) aortic valve insufficiency. Ordering Physician: Paulina Prieto Performed By: Atul Gonzalez RCS Physical Exam Neuro Neuro Narrative: Neurological examination: General: The patient appears nutritionally appropriate, well-groomed, and appears comfortable in no acute distress. Mental Status:? The patient?s mental status was alert. Patient reported his age as 54.? Language was intact.? Cranial nerves:? Visual cabello full, extra-ocular motion was intact. Face motion symmetric.? Bilateral shoulder shrug was intact.? Tongue was midline with normal movement.? There was no dysarthria. Motor: Normal strength in all four extremities. No pronator drift. Sensation: Intact light touch bilaterally, no extinction.? Coordination:? Bilateral finger to nose was normal.? There was dysmetria. Asterixis was noted in bilateral arms. Gait:? deferred Subject: Neurology Subjective Patient reports he feels back to baseline. Daughter at bedside reports patient is doing better. Patient is amnestic for GM seizure yesterday. 137/85. Assessment and Plan: Stroke Assessment/Plan JAYLA SCHWARZ is a 74 year old left handed male with a history of lung cancer and seizure on PHT (300-200) last seizure 10 years ago who on 09/18/24 730a while at work ([employer]) developed aphasia and stopped talking. Patient brought to [facility]. Ct brain negative. CTA head/neck shows 70% DARNELL stenosis. Telestroke consult showed NIHSS 9. Patient then had a [place] seizure last night around 6p, lasted < 1 minute (per daughter). Patient denies missing any PHT doses. No fever or illness recently. Neurological examination shows mild confusion, otherwise nonfocal, NIHSS-1 (?- 1). ASSESSMENT/PLAN: Seizure 1) Stroke ruled out with negative MRI brain. Most likely cause of aphasia was seizure. No clear trigger to lower seizure threshold. 2) Continue Phenytoin. Level therapeutic at 21.1 3) DARNELL stenosis is asymptomatic and incidental. Can follow-up as outpatient with Vascular Surgery electively. Will sign off. Please call us back with further stroke related questions. Primary team messaged on backline.
[2024-09-19 15:00] VITALS: BP 116/62; PULSE 82; RESP 16; TEMP 36.7; O2SAT 98
--- NOTE | 2024-09-19 15:25 | PN_ITS ---
Subjective Subjective Patient seen and examined. He was lying calmly in bed. He had no active complaints. He was admitted with a complaint of a seizure. He was initially thought to have had a stroke because he came in with expressive aphasia. He subsequently had a seizure also on admission. He had has known seizure disorder and is on phenytoin. He has remained hemodynamically stable and had no complaints. Review of systems otherwise negative. Objective Data Objective Data Vital Signs: Vital Signs Temp Pulse Resp BP Pulse Ox O2 Del Method 98.0 F 76 18 137/85 H 96 Room Air 09/19/24 09:00 09/19/24 09:00 09/19/24 09:00 09/19/24 09:00 09/19/24 12:26 09/19/24 12:26 Oxygen Delivery Method Room Air Weight: 159 lb 2.78 oz Body Mass Index (BMI) 27.3 Intake & Output: Intake and Output for Last 24 Hours 09/17/24 09/18/24 09/19/24 23:59 23:59 23:59 Intake Total 120 / 120 1000 / 1000 Output Total 600 / 600 Balance 120 / 120 400 / 400 Lab / Micro Data 09/19/24 08:17 09/19/24 08:17 Labs: Laboratory Results - last 24 hr 09/18/24 18:14: WBC 8.5, RBC 4.06 L, Hgb 12.9 L, Hct 37.2 L, MCV 91.6, MCH 31.8, MCHC 34.7, RDW Std Deviation 43.3, RDW Coeff of Jalyn 12.9, Plt Count 188, MPV 11.1, Immature Gran % (Auto) 0.400, Neut % (Auto) 70.5 H, Lymph % (Auto) 21.4, [place] % (Auto) 7.0, Eos % (Auto) 0.5, Baso % (Auto) 0.2, Absolute Neuts (auto) 6.0, Absolute Lymphs (auto) 1.81, Nucleated RBC % 0, PT 14.6, INR 1.1, APTT 28.2, Sodium 138, Potassium 4.1, Chloride 108 H, Carbon Dioxide 25.0, Anion Gap 6, BUN 17, Creatinine 0.78, Estim Creat Clear Calc 71.54, Est GFR (MDRD) Af Amer 125, Est GFR (MDRD) Non-Af 103, BUN/Creatinine Ratio 21.7 H, Glucose 130 H, Calcium 8.8, Magnesium 2.3, Troponin I High Sens 6 09/18/24 21:18: POC Glucose 177 H 09/18/24 22:09: Phenytoin 21.1 H 09/19/24 08:17: WBC 6.2, RBC 4.34 L, Hgb 13.6, Hct 41.1, MCV 94.7 H, MCH 31.3, MCHC 33.1, RDW Std Deviation 44.9 H, RDW Coeff of Jalyn 12.8, Plt Count TNP, MPV 12.0, Immature Gran % (Auto) 0.500, Neut % (Auto) 69.8, Lymph % (Auto) 19.1, [place] % (Auto) 9.0, Eos % (Auto) 0.8, Baso % (Auto) 0.8, Absolute Neuts (auto) 4.3, Absolute Lymphs (auto) 1.19, Nucleated RBC % 0, Platelet Estimate ADEQUATE, Sodium 143, Potassium 4.4, Chloride 113 H, Carbon Dioxide 21.0, Anion Gap 9, BUN 14, Creatinine 0.62 L, Estim Creat Clear Calc 74.91, Est GFR (MDRD) Af Amer 164, Est GFR (MDRD) Non-Af 135, BUN/Creatinine Ratio 22.6 H, Glucose 124 H, H emoglobin A1c 6.0 H, Calcium 9.0, Total Bilirubin 0.20, AST 16, ALT 25, Alkaline Phosphatase 137 H, Total Protein 6.8, Albumin 3.6, Globulin 3.2, Albumin/Globulin Ratio 1.1, Triglycerides 105, Cholesterol 141, LDL Cholesterol 65, VLDL Cholesterol 21, HDL Cholesterol 55, TSH 0.870 Radiography Diagnostic Testing: Radiology Impression Brain CT 09/18/24 17:54 IMPRESSION: NO ACUTE INTRACRANIAL HEMORRHAGE. NO CT FINDINGS FOR TERRITORIAL INFARCT AT THIS TIME. MILD ENCEPHALOMALACIA IN THE HIGH PARIETAL LOBES BILATERALLY. Reading Location: [id number] Head/Neck CTA 09/18/24 18:00 IMPRESSION: RIGHT CAROTID: 75 PERCENT STENOSIS DUE TO CALCIFIED ATHEROSCLEROTIC PLAQUE. LEFT CAROTID: LESS THAN 50 PERCENT STENOSIS VERTEBRALS: ATHEROSCLEROTIC AT THE ORIGINS, UP TO 75 PERCENT STENOSIS ON THE LEFT SIDE. INTRACRANIAL: NEGATIVE FOR LARGE VESSEL OCCLUSION. ASYMMETRIC APPEARANCE TO THE VOCAL FOLDS. PROBABLE MUCOCELE IN THE RIGHT POSTERIOR LATERAL PHARYNGEAL WALL MEASURING 1.6 X 1.1 CENTIMETERS. CORRELATION WITH DIRECT VISUALIZATION RECOMMENDED. Reading Location: [facility] Chest X-Ray 09/18/24 19:12 IMPRESSION: HYPERINFLATED LUNGS. NO ACUTE ABNORMALITY. Reading Location: [facility] Echocardiogram 09/18/24 21:07 Interpretation Summary The left ventricular ejection fraction is 65 %. Mild (1+) aortic valve insufficiency. Ordering Physician: Paulina Prieto Performed By: Atul Gonzalez RCS Physical Exam Const alert, oriented x3 and no apparent distress Constitutional Narrative: frail General Appearance: cooperative HEENT normocephalic, head/scalp atraumatic, moist oral mucous membranes and oropharynx normal Eyes PERRL and EOMs intact bilaterally Neck no lymphadenopathy and supple Lymph Lymphatic: no lymphadenopathy noted and no lymphedema noted Resp normal respiratory effort, normal air movement and clear to auscultation bilaterally Cardio regular rate, regular rhythm, S1 normal heart sound, S2 normal heart sound and no murmurs GI normal to inspection, nondistended, normoactive bowel sounds, soft to palpation, non-tender and non-distended Extremity normal capillary refill, no clubbing, cyanosis or edema and no calf tenderness General Extremity: no tenderness to palpation of joints or extremities Skin General Skin Exam: no breakdown Neuro CN's II-XII intact bilaterally, no focal motor deficits and no sensory deficits noted Motor Exam: strength 5/5 throughout and general weakness Psych thought process normal and cooperative Mood & Affect: flat affect Assessment & Plan Assessment/Plan (1) Expressive aphasia: (2) Seizure: PLAN: Plan #Strokelike symptoms * Admitted with a complaint of expressive aphasia. Initial concern was for stroke. * CT brain showed no acute intracranial pathology. MRI of the brain done and read is pending though per neurologist on her review it looks normal. * Neurology reviewed patient. He did have a seizure during admission and neurology thinks that the expressive aphasia may have been also seizure. * On aspirin and high intensity statin. 2D echo ordered. * 2D echo today showed EF of 65% with normal diastolic for age and mild aortic valve insufficiency. * CTA head and neck showed 75% stenosis of the right carotid and less than 50% stenosis of the left carotid. He also had atherosclerotic plaque at the origins of the vertebral arteries with up to 75% stenosis on the left side. * Will get carotid ultrasound. * #Seizure with breakthrough seizure * Patient had a tonic-clonic seizure during admission. He claims compliance with his medications. He is on phenytoin. EEG ordered and read is pending.. * per Neurology to continue with his current dose of phenytoin * No further workup if MRI is negative. * Seizure precautions. 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 To follow-up with PCP for further workup as needed. DVT prophylaxis: SCDs. Disposition: Anticipate DC by tomorrow. Charges/Coding Visit Charges Inpatient E&M: 57541 Subs Hosp L2
--- NOTE | 2024-09-19 15:30 | CDU_ITS ---
Reason For Study Reason For Study: Carotid stenosis Rt. Velocities/BP Lt. Velocities/BP Prox CCA 76.8/11.6 cm/sec. Prox CCA 93.7/13.3 cm/sec. Mid CCA 76.8/9.7 cm/sec. Mid CCA 83.9/16.3 cm/sec. Dist CCA 65.5/11.6 cm/sec. Dist CCA 88.8/13.9 cm/sec. Prox ICA 267.7/47.4 cm/sec. Prox ICA 90/16.3 cm/sec. Mid ICA 161.5/31.9 cm/sec. Mid ICA 81.4/13.9 cm/sec. Dist ICA 88.9/24.1 cm/sec. Dist ICA 57.9/12.6 cm/sec. Rt. ICA/CCA = 3.48. Lt. ICA/CCA = 1.07. Prox ECA 169.1/30.1 cm/sec. Prox ECA 117.4/7.9 cm/sec. Rt. Vert. 34.3/9 cm/sec. Lt. Vert. 37.8/8.1 cm/sec. Right Extracranial There is homogeneous, smooth atherosclerotic plaque noted in the right common carotid artery. There is heterogeneous, irregular atherosclerotic plaque noted in the right internal carotid artery. There is heterogeneous, irregular atherosclerotic plaque noted in the right external carotid artery. Antegrade flow is noted in the right vertebral artery. Left Extracranial There is homogeneous, smooth atherosclerotic plaque noted in the left common carotid artery. There is heterogeneous, irregular atherosclerotic plaque noted in the left internal carotid artery. There is heterogeneous, irregular atherosclerotic plaque noted in the left external carotid artery. Antegrade flow is noted in the left vertebral artery. Procedure Carotid Duplex 11867. This is a Carotid Duplex examination using B-mode, color flow and specral Doppler. Preliminary report given to moto mix operator. Exam performed portable in patient room. VL/Carotid Duplex Ultrasound Interpretation Summary Severe (>70%) stenosis right extracranial internal carotid. Mild (<50%) stenosis left extracranial internal carotid. Patent and antegrade vertebrals bilaterally. Ordering Physician: Unique Robert Referring Physician: Haresh Almanzar Performed By: Sophia Figueroa RVT
[2024-09-19 20:39] VITALS: BMI 27.3
[2024-09-19 21:15] VITALS: BP 144/73; PULSE 88; RESP 18; TEMP 36.7; O2SAT 100
[2024-09-19] MEDS: Atorvastatin Calcium 80 MG Tablet PO (21:24)
--- NOTE | 2024-09-20 02:21 | PCM.HOSP.N ---
Hospitalist Note Patient has been cleared for oral intake. Will add back home medications and transition to oral phenytoin as patient reports burning sensation with the IV regimen.
[2024-09-20 03:15] VITALS: BP 131/57; PULSE 94; RESP 16; TEMP 36.2; O2SAT 100
[2024-09-20 05:29] LABS: Absolute Lymphocyte Count 2.07 X10^3/uL (0.83-4.51); Absolute Neutrophil Count 7.3 X10^3/uL (2.0-7.7); Basophil# 0.02 X10^3/uL; Basophil% 0.2 % (0-1); Eosinophil# 0.07 X10^3/uL; Eosinophils% 0.7 % (0-5); Hematocrit 35.3 % (40-54); Lymphocyte # 2.07 X10^3/ul (0.83-4.51); Lymphocyte % 19.3 % (19-41); Mean Corpuscular Hgb 30.8 pg (27.0-32.0); Mean Corpuscular Volume 90.7 fL (80-94); Mean Platelet Vol. 11.4 fl (6.2-12.0); Monocyte# 1.17 X10^3/uL; Monocyte% 10.9 % (0-10); NRBC Flagged by Analyzer 0 % (0-5); Neutrophil # 7.34 X10^3/uL (2.7-7.7); Neutrophil % 68.5 % (47-70); Platelet Count 172 K/mm3 (150-450); RBC Distribution Width SD 42.9 fl (35.1-43.9); Red Blood Count 3.89 M/mm3 (4.6-6.2); White Blood Count 10.7 K/mm3 (4.4-11.0)
[2024-09-20 05:42] LABS: Anion Gap 7 (5-15); BUN 12 mg/dL (7-18); BUN/Creat Ratio 18.6 RATIO (10-20); Calcium,Total 8.7 mg/dL (8.5-10.1); Chloride 108 mmol/L (98-107); Creatinine, Serum 0.64 mg/dL (0.70-1.30); EST Glomerular Filtration Rate 129 mL/min (>60); Est Glom Filt Rate - Afr Amer 156 mL/min (>60); Estimated Creatinine Clearance 74.91 ml/min; Glucose 125 mg/dL (74-106); Potassium 3.7 mmol/L (3.5-5.1); Sodium Level 139 mmol/L (136-145)
--- NOTE | 2024-09-20 08:08 | CASEMGMT ---
Social Work PHQ9 depression screen not completed as MRI is negative for stroke. ERIC Mary
[2024-09-20] MEDS: Aspirin 81 MG TAB.CHEW PO (08:10)
[2024-09-20] MEDS: Enoxaparin 40 MG/0.4 ML Syringe SC (08:12)
[2024-09-20] MEDS: Phenytoin Na 100 MG Capsule 300 MG PO (08:13)
[2024-09-20 09:15] VITALS: BP 120/65; PULSE 88; RESP 18; TEMP 36.9; O2SAT 99
--- NOTE | 2024-09-20 11:11 | CASEMGMT ---
Discharge Planning A list of SNF providers including quality and resource use data and consistent with the patient's preferred geographic region, medical needs, and insurance network was created in [employer] Guide.? This list was provided to the SW. Adrianna Gooden Discharge Planning Asst.
--- NOTE | 2024-09-20 12:43 | CASEMGMT ---
Addendum entered by Tanya Fitch 09/20/24 14:36: Social Work SW returned to pt room. Pt's three children now present. After continued discussion amoung family and pt, pt is now agreeable to short term SNF and facility of choice is [facility]. Pt will need precert prior to admission to facility. PHysician updated. Plan: [facility], pending acceptance and precert ERIC Mary Original Note: Social Work SW met with pt and introduced self and role of SW. SW discussed with pt recommendations from therapist for short term SNF prior to return home alone. Pt is adamant that he can return home and does not need SNF. Pt states his children will help him at home. Pt states he dgt Rachel will be in shortly. SW returned to pt room later when pt dgt Rachel and pt's son Monty are present. SW again discussed discharge plan including options of home with home health, home with outpatient therapy and SNF. Pt again adamant that he will not go to SNF. Pt dgt strongly feels like pt should go to SNF. A list of SNF providers including quality and resource use data and consistent with the patient?s preferred geographic region, medical needs, and insurance network were provided from the [employer] Guide. SW left pt and children to discuss dc plan and SW will return later today to obtain decision. ERIC Mary
--- NOTE | 2024-09-20 14:24 | DCINST_ITS ---
Discharge Instructions Diet Discharge Diet: Low fat / Low cholesterol DC O2, CPAP, BIPAP needs Home O2 Discharge instructions: No Dressing / Incision Discharge Activity: Return to Normal Activity Weight Bearing Status: Weight bearing as tolerated Dressing / Incision Call your doctor if you observe: Fever of 101 or Higher, Shortness of breath, Dizziness, Swelling in the ankles, Chest pain and - (breakthrough eizures) Follow Up Care Test Results: Test results from this visit will be discussed in further detail at your follow- up appointment, if applicable. Discharge Plan Admission Admit Date/Time: 09/18/24 19:39 Primary Reason for Your Visit: seizure, carotid stenosis Attending Provider: Unique Robert Primary Care Provider: Haresh Almanzar Consulting Providers: Vivi Chapa; Odalis Cintron; Jesus Foy; Cecy Kaur; Smiley Hinds; Lucie Welch; Hollis Rodrigues; Tamanna Hopson; KARL ALMAZAN; Rc Harley; Radha Lopez; Paulina Prieto Instructions Patient Instructions: Living Well with Epilepsy, First Aid: Seizures, Carotid Artery Disease Discharge Orders/Prescriptions Prescriptions: New atorvastatin 80 mg Tablet 80 mg PO QHS Qty: 30 2RF Continued phenytoin sodium extended 100 MG capsule 300 mg PO BREAKFAST phenytoin sodium extended 100 MG capsule 200 mg PO QHS aspirin [Breezy Chewable Aspirin] 81 mg tablet,chewable 81 mg PO DAILY Discontinued atorvastatin 20 MG tablet 80 mg PO DAILY Referrals / Follow Up: Deonte Tran MD [Med Staff - Active Staff] - Within 2 Weeks (see to establish care for carotid stenosis) aHresh Almanzar MD [Primary Care Provider] - Within 1 Week Disposition Disposition (needs filled in before D/C Order can be placed): Home, Self Care
--- NOTE | 2024-09-20 14:27 | CASEMGMT ---
SNF referral sent to [facility]. Adrianna Gooden DC Planning Asst.
--- NOTE | 2024-09-20 14:29 | DS.PCM_ITS ---
Providers Date of Admission: 09/18/24 Date of Discharge: 09/20/24 Primary Care Physician: Dr. Haresh Almanzar MD Reason For Visit: EXPRESSIVE APHASIA Diagnosis Discharge Diagnosis (1) Expressive aphasia: Status: Acute Code(s): R47.01 - Aphasia (2) Seizure: Status: Acute Code(s): R56.9 - Unspecified convulsions Plan #Strokelike symptoms * Admitted with a complaint of expressive aphasia. Initial concern was for stroke. * CT brain showed no acute intracranial pathology. MRI of the brain done and read is pending though per neurologist on her review it looks normal. * Neurology reviewed patient. He did have a seizure during admission and neurology thinks that the expressive aphasia may have been also seizure. * On aspirin and high intensity statin. 2D echo ordered. * 2D echo today showed EF of 65% with normal diastolic for age and mild aortic valve insufficiency. * CTA head and neck showed 75% stenosis of the right carotid and less than 50% stenosis of the left carotid. He also had atherosclerotic plaque at the origins of the vertebral arteries with up to 75% stenosis on the left side. * Will get carotid ultrasound. * #Seizure with breakthrough seizure * Patient had a tonic-clonic seizure during admission. He claims compliance with his medications. He is on phenytoin. EEG ordered and read is pending.. * per Neurology to continue with his current dose of phenytoin * No further workup if MRI is negative. * Seizure precautions. 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 To follow-up with PCP for further workup as needed. DVT prophylaxis: SCDs. Disposition: Anticipate DC by tomorrow. Medications at Discharge Home Medications phenytoin sodium extended 100 mg capsule 200 mg PO QHS 11/07/14 phenytoin sodium extended 100 mg capsule 300 mg PO BREAKFAST 11/07/14 aspirin 81 mg chewable tablet (Breezy Chewable Low Dose Aspirin) 81 mg PO DAILY 09/18/24 atorvastatin 80 mg tablet 80 mg PO QHS #30 tabs 09/20/24 Hospital Course Operations None Procedures 2-D Echocardiogram Summary of Care Provided Minutes Spent on Discharge: 42 Hospital Course: Jeremias is a 74 y/o male with a PMH as outlined who was admitted via the ED on 09/18/2024 with a complaint of confusion and expressive aphasia. He was at work and was noted to be confused so he went home. His daughter went into check on him and noted that he was not able to talk so she called the EMS. When he came into the ED his symptoms had largely resolved. CT of the brain showed no acute intracranial pathology and CT of the head and neck showed right carotid 75% stenosis due to calcified atherosclerotic plaque in left carotid less than 50% stenosis in the vertebrals with atherosclerosis at the origins up to 75% on the left side. It also showed an asymmetrical appearance of the vocal cords probably mucocele in the right posterior lateral pharyngeal wall measuring about 1.6 x 1.1 cm. EKG showed no acute ST changes. He was admitted to manage expressive aphasia to rule out a stroke. He was placed on aspirin which she had already been on at home. Neurology was consulted. He had MRI of the brain which showed no evidence of a stroke. Of note during the admission patient was noted to have about a 22nd tonic-clonic seizure. He was loaded with Dilantin and his home dose of Dilantin was continued. Neurology reviewed patient and thought the likely cause of the aphasia was a seizure with no clear trigger to lower seizure threshold. Dilantin level was therapeutic at 21.1 so neurology recommended continuing the phenytoin. He had a carotid ultrasound done preliminary read of which showed carotid stenosis as per the CTA. Official read was pending at time of discharge. He was discharged on p.o. aspirin and has atorvastatin was increased to 80 mg daily on account of the severe carotid stenosis. He was referred to vascular surgery on outpatient basis and is follow-up with his primary care doctor and neurologist on outpatient basis also. Patient seen and examined prior to discharge. He felt well and had no complaints. Review of systems otherwise negative. He wanted to be discharged home. Labs and vitals reviewed. Home medication reviewed and reconciled. Physical Exam Const alert, oriented x3 and no apparent distress Constitutional Narrative: frail General Appearance: cooperative and comfortable Orientation / Consciousness: awake HEENT normocephalic, head/scalp atraumatic, hearing grossly normal bilaterally, moist oral mucous membranes and oropharynx normal Eyes PERRL, EOMs intact bilaterally and conjunctivae normal Neck no lymphadenopathy and supple Lymph Lymphatic: no lymphadenopathy noted and no lymphedema noted Resp normal respiratory effort, normal air movement and clear to auscultation bilaterally Cardio regular rate, regular rhythm, S1 normal heart sound, S2 normal heart sound and no murmurs GI normal to inspection, nondistended, normoactive bowel sounds, soft to palpation, non-tender and non-distended Extremity normal to inspection, full ROM, normal capillary refill, no clubbing, cyanosis or edema and no calf tenderness General Extremity: no tenderness to palpation of joints or extremities Skin no rashes or lesions noted General Skin Exam: no breakdown Neuro oriented x3, CN's II-XII intact bilaterally, moves all extremities, no focal motor deficits and no sensory deficits noted Sensorium / Orientation: awake and alert Motor Exam: strength 5/5 throughout and general weakness Psych thought process normal and cooperative Weight / BMI Weight Weight: 159 lb 2.78 oz Body Mass Index (BMI) 27.3 ABG / Lab / Microbiology Data 09/20/24 04:49 09/20/24 04:49 Laboratory: Laboratory Results - last 24 hr 09/20/24 04:49: WBC 10.7, RBC 3.89 L, Hgb 12.0 L, Hct 35.3 L, MCV 90.7, MCH 30.8, MCHC 34.0, RDW Std Deviation 42.9, RDW Coeff of Jalyn 13.0, Plt Count 172, MPV 11.4, Immature Gran % (Auto) 0.400, Neut % (Auto) 68.5, Lymph % (Auto) 19.3, [place] % (Auto) 10.9 H, Eos % (Auto) 0.7, Baso % (Auto) 0.2, Absolute Neuts (auto) 7.3, Absolute Lymphs (auto) 2.07, Nucleated RBC % 0, Sodium 139, Potassium 3.7, Chloride 108 H, Carbon Dioxide 23.0, Anion Gap 7, BUN 12, Creatinine 0.64 L, Estim Creat Clear Calc 74.91, Est GFR (MDRD) Af Amer 156, Est GFR (MDRD) Non-Af 129, BUN/Creatinine Ratio 18.6, Glucose 125 H, Calcium 8.7 Radiography Diagnostic Testing: Radiology Impression Brain MRI 09/19/24 09:00 IMPRESSION: No acute intracranial abnormality. Reading Location: [place] [address] D/C Instructions Discharge Diet: Low fat / Low cholesterol Discharge Activity: Return to Normal Activity Weight Bearing Status: Weight bearing as tolerated Call your doctor if you observe: Fever of 101 or Higher, Shortness of breath, Dizziness, Swelling in the ankles, Chest pain and - (breakthrough eizures) DC O2, CPAP, BIPAP Needs Home O2 Discharge instructions: No Meaningful Use Info Meaningful Use Meaningful Use Diagnoses (Choose all that apply): None applicable Ischemic Stroke Statin Dosing Therapy Reference: STATIN DOSE THERAPY REFERENCE: * Patients > 75 years receive moderate or high dose statin therapy. * Patients 75 years or YOUNGER should receive HIGH intensity statin dose unless contraindicated. You will be required to document reason for non-treatment if statin daily dose does not meet guidelines. HIGH DOSE STATIN THERAPY DAILY Atorvastatin > than or = to 40 mg Rosuvastatin > than or = to 20 mg Amlodipine + Atorvastatin > than or = to 2.5/40 mg Ezetimibe + Simvastatin 10/80 mg Simvastatin 80mg Discharge Plan Admission Admit Date/Time: 09/18/24 19:39 Primary Reason for Your Visit: seizure, carotid stenosis Attending Provider: Unique Robert Primary Care Provider: Haresh Almanzar Consulting Providers: Vivi Chapa; Odalis Cintron; Jesus Foy; Cecy Kaur; Smiley Hinds; Lucie Welch; Hollis Rodrigues; Tamanna Hopson; KARL ALMAZAN; Rc Harley; Radha Lopez; Paulina Prieto Instructions Patient Instructions: Living Well with Epilepsy, First Aid: Seizures, Carotid Artery Disease Discharge Orders/Prescriptions Prescriptions: New atorvastatin 80 mg Tablet 80 mg PO QHS Qty: 30 2RF Continued phenytoin sodium extended 100 MG capsule 300 mg PO BREAKFAST phenytoin sodium extended 100 MG capsule 200 mg PO QHS aspirin [Breezy Chewable Aspirin] 81 mg tablet,chewable 81 mg PO DAILY Discontinued atorvastatin 20 MG tablet 80 mg PO DAILY Referrals / Follow Up: Deonte Tran MD [Med Staff - Active Staff] - Within 2 Weeks (see to establish care for carotid stenosis) Haresh Almanzar MD [Primary Care Provider] - Within 1 Week Disposition Disposition (needs filled in before D/C Order can be placed): Home, Self Care Charges/Coding Visit Charges Inpatient E&M: 20363 Disch Hosp >30min
[2024-09-20 15:00] VITALS: BP 115/64; PULSE 90; RESP 16; TEMP 36.6; O2SAT 99
--- NOTE | 2024-09-20 15:01 | PN_ITS ---
Subjective Subjective Patient seen and examined. He had no complaints. Review of systems is otherwise negative. He wanted to be discharged home. Plan was for dc today and patient was actually discharge. However, I was informed he had not done well with therapy today and so was now opting to go to SNF. Review of systems is otherwise negative. Objective Data Objective Data Vital Signs: Vital Signs Temp Pulse Resp BP Pulse Ox O2 Del Method 98.4 F 88 18 120/65 99 Room Air 09/20/24 09:15 09/20/24 09:15 09/20/24 09:15 09/20/24 09:15 09/20/24 09:15 09/20/24 09:15 Oxygen Delivery Method Room Air Weight: 159 lb 2.78 oz Body Mass Index (BMI) 27.3 Intake & Output: Intake and Output for Last 24 Hours 09/18/24 09/19/24 09/20/24 23:59 23:59 23:59 Intake Total 120 / 120 1240 / 1240 240 / 240 Output Total 600 / 600 Balance 120 / 120 640 / 640 240 / 240 Lab / Micro Data 09/20/24 04:49 09/20/24 04:49 Labs: Laboratory Results - last 24 hr 09/20/24 04:49: WBC 10.7, RBC 3.89 L, Hgb 12.0 L, Hct 35.3 L, MCV 90.7, MCH 30.8, MCHC 34.0, RDW Std Deviation 42.9, RDW Coeff of Jalyn 13.0, Plt Count 172, MPV 11.4, Immature Gran % (Auto) 0.400, Neut % (Auto) 68.5, Lymph % (Auto) 19.3, [place] % (Auto) 10.9 H, Eos % (Auto) 0.7, Baso % (Auto) 0.2, Absolute Neuts (auto) 7.3, Absolute Lymphs (auto) 2.07, Nucleated RBC % 0, Sodium 139, Potassium 3.7, Chloride 108 H, Carbon Dioxide 23.0, Anion Gap 7, BUN 12, Creatinine 0.64 L, Estim Creat Clear Calc 74.91, Est GFR (MDRD) Af Amer 156, Est GFR (MDRD) Non-Af 129, BUN/Creatinine Ratio 18.6, Glucose 125 H, Calcium 8.7 Radiography Diagnostic Testing: Radiology Impression Brain MRI 09/19/24 09:00 IMPRESSION: No acute intracranial abnormality. Reading Location: [place] [id number] Physical Exam Const alert, oriented x3 and no apparent distress Constitutional Narrative: frail General Appearance: cooperative and comfortable Orientation / Consciousness: awake HEENT normocephalic, head/scalp atraumatic, hearing grossly normal bilaterally, moist oral mucous membranes and oropharynx normal Eyes PERRL, EOMs intact bilaterally and conjunctivae normal Neck no lymphadenopathy and supple Lymph Lymphatic: no lymphadenopathy noted and no lymphedema noted Resp normal respiratory effort, normal air movement and clear to auscultation bilaterally Cardio regular rate, regular rhythm, S1 normal heart sound, S2 normal heart sound and no murmurs GI normal to inspection, nondistended, normoactive bowel sounds, soft to palpation, non-tender and non-distended Extremity normal to inspection, full ROM, normal capillary refill, no clubbing, cyanosis or edema and no calf tenderness General Extremity: no tenderness to palpation of joints or extremities Skin no rashes or lesions noted General Skin Exam: no breakdown Neuro oriented x3, CN's II-XII intact bilaterally, moves all extremities, no focal motor deficits and no sensory deficits noted Sensorium / Orientation: awake and alert Motor Exam: strength 5/5 throughout and general weakness Psych thought process normal and cooperative Appearance: appropriate Assessment & Plan Assessment/Plan (1) Expressive aphasia: (2) Seizure: PLAN: Plan #Strokelike symptoms * Admitted with a complaint of expressive aphasia. Initial concern was for stroke. * CT brain showed no acute intracranial pathology. MRI of the brain done and read is pending though per neurologist on her review it looks normal. * Neurology reviewed patient. He did have a seizure during admission and neurology thinks that the expressive aphasia may have been also seizure. * On aspirin and high intensity statin. 2D echo ordered. * 2D echo today showed EF of 65% with normal diastolic for age and mild aortic valve insufficiency. * CTA head and neck showed 75% stenosis of the right carotid and less than 50% stenosis of the left carotid. He also had atherosclerotic plaque at the origins of the vertebral arteries with up to 75% stenosis on the left side. * Will get carotid ultrasound. * #Seizure with breakthrough seizure * Patient had a tonic-clonic seizure during admission. He claims compliance with his medications. He is on phenytoin. EEG ordered and read is pending.. * per Neurology to continue with his current dose of phenytoin * No further workup if MRI is negative. * Seizure precautions. 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 To follow-up with PCP for further workup as needed. DVT prophylaxis: SCDs. Disposition:now wanting SNF as he did not do well with physical therapy. Case management on board for placement. Charges/Coding Visit Charges Inpatient E&M: 75273 Subs Hosp L2
[2024-09-20 17:00] VITALS: BMI 27.3
[2024-09-20 17:52] VITALS: BMI 27.3
[2024-09-20 20:22] VITALS: BMI 27.3
[2024-09-20] MEDS: Atorvastatin Calcium 80 MG Tablet PO (21:49)
[2024-09-20] MEDS: Phenytoin Na 100 MG Capsule 200 MG PO (21:49)
[2024-09-20 21:55] VITALS: BP 111/67; PULSE 91; RESP 18; TEMP 36.8; O2SAT 100
[2024-09-21 03:00] VITALS: BP 152/61; PULSE 89; RESP 16; TEMP 36.8; O2SAT 100
[2024-09-21 07:37] LABS: Absolute Neutrophil Count 5.9 X10^3/uL (2.0-7.7); Basophil# 0.05 X10^3/uL; Basophil% 0.5 % (0-1); Eosinophils% 1.1 % (0-5); Hematocrit 35.8 % (40-54); Hemoglobin 12.4 g/dL (13.0-16.5); Lymphocyte % 23.9 % (19-41); Mean Corp Hgb Conc 34.6 g/dL (32-36); Mean Corpuscular Hgb 31.6 pg (27.0-32.0); Mean Corpuscular Volume 91.1 fL (80-94); Mean Platelet Vol. 11.5 fl (6.2-12.0); Monocyte# 0.98 X10^3/uL; Monocyte% 10.6 % (0-10); NRBC Flagged by Analyzer 0 % (0-5); Neutrophil # 5.85 X10^3/uL (2.7-7.7); Neutrophil % 63.5 % (47-70); Platelet Count 156 K/mm3 (150-450); RBC Distribution Width CV 12.7 % (11.6-14.6); Red Blood Count 3.93 M/mm3 (4.6-6.2); White Blood Count 9.2 K/mm3 (4.4-11.0)
[2024-09-21 08:10] VITALS: O2SAT 96
[2024-09-21 08:11] LABS: Anion Gap 5 (5-15); BUN 13 mg/dL (7-18); BUN/Creat Ratio 21.9 RATIO (10-20); Calcium,Total 8.8 mg/dL (8.5-10.1); Chloride 110 mmol/L (98-107); Creatinine, Serum 0.59 mg/dL (0.70-1.30); EST Glomerular Filtration Rate 142 mL/min (>60); Est Glom Filt Rate - Afr Amer 172 mL/min (>60); Estimated Creatinine Clearance 74.91 ml/min; Glucose 128 mg/dL (74-106); Potassium 3.8 mmol/L (3.5-5.1); Sodium Level 140 mmol/L (136-145)
[2024-09-21 08:32] VITALS: BP 108/49; PULSE 85; RESP 16; TEMP 36.7; O2SAT 99
[2024-09-21] MEDS: Enoxaparin 40 MG/0.4 ML Syringe SC (08:35)
[2024-09-21] MEDS: Phenytoin Na 100 MG Capsule 300 MG PO (08:36)
[2024-09-21] MEDS: Aspirin 81 MG TAB.CHEW PO (08:36)
--- NOTE | 2024-09-21 12:21 | CASEMGMT ---
Social Work Pt participated in therapy today and did much better today than previously. Pt is able to return home independently at this time. FWW is recommended and Outpt PT/OT/ST. Phone call to pt dgt Rachel and updated on pt progress with therapy and Rachel is agreeable for pt to return home and will be able to provide transportation home today. Rachel is agreeble to FWW and outpt therapy. Physician notified. SW met with pt and discussed discharge plan. Pt is agreeable that he is able to return home at this time and is understanding of need for FWW. Plan: home alone. Outpt PT/OT/ST. FWW ERIC Mary
--- NOTE | 2024-09-21 13:32 | PCM.DC.SUM ---
Providers Date of Admission: 09/18/24 Date of Discharge: 09/21/24 Primary Care Physician: Dr. aHresh Almanzar MD Reason For Visit: EXPRESSIVE APHASIA Diagnosis Discharge Diagnosis (1) Expressive aphasia: Status: Acute Code(s): R47.01 - Aphasia (2) Seizure: Status: Acute Code(s): R56.9 - Unspecified convulsions Plan #Strokelike symptoms Admitted with a complaint of expressive aphasia. Initial concern was for stroke. CT brain showed no acute intracranial pathology. MRI of the brain done and read is pending though per neurologist on her review it looks normal. Neurology reviewed patient. He did have a seizure during admission and neurology thinks that the expressive aphasia may have been also seizure. On aspirin and high intensity statin. 2D echo ordered. 2D echo today showed EF of 65% with normal diastolic for age and mild aortic valve insufficiency. CTA head and neck showed 75% stenosis of the right carotid and less than 50% stenosis of the left carotid. He also had atherosclerotic plaque at the origins of the vertebral arteries with up to 75% stenosis on the left side. Will get carotid ultrasound. #Seizure with breakthrough seizure Patient had a tonic-clonic seizure during admission. He claims compliance with his medications. He is on phenytoin. EEG ordered and read is pending.. per Neurology to continue with his current dose of phenytoin No further workup if MRI is negative. Seizure precautions. #Probable mucocele in the right posterior lateral pharyngeal wall This is as seen on the CTA head and neck. To follow-up with PCP for further workup as needed. DVT prophylaxis: SCDs. Disposition:now wanting SNF as he did not do well with physical therapy. Case management on board for placement. Medications at Discharge Home Medications phenytoin sodium extended 100 mg capsule 200 mg PO QHS 11/07/14 phenytoin sodium extended 100 mg capsule 300 mg PO BREAKFAST 11/07/14 aspirin 81 mg chewable tablet (Breezy Chewable Low Dose Aspirin) 81 mg PO DAILY 09/18/24 atorvastatin 80 mg tablet 80 mg PO QHS #30 tabs 09/20/24 Hospital Course Operations None Procedures None Summary of Care Provided Minutes Spent on Discharge: 45 Hospital Course: Patient is a 74 y/o male with a PMH as outlined who was admitted via the ED on 09/18/2024 with a complaint of confusion and expressive aphasia. He was at work and was noted to be confused so he went home. His daughter went into check on him and noted that he was not able to talk so she called the EMS. When he came into the ED his symptoms had largely resolved. CT of the brain showed no acute intracranial pathology and CT of the head and neck showed right carotid 75% stenosis due to calcified atherosclerotic plaque in left carotid less than 50% stenosis in the vertebrals with atherosclerosis at the origins up to 75% on the left side. It also showed an asymmetrical appearance of the vocal cords probably mucocele in the right posterior lateral pharyngeal wall measuring about 1.6 x 1.1 cm. EKG showed no acute ST changes. He was admitted to manage expressive aphasia to rule out a stroke. He was placed on aspirin which she had already been on at home. Neurology was consulted. He had MRI of the brain which showed no evidence of a stroke. Of note during the admission patient was noted to have about a 22nd tonic-clonic seizure. He was loaded with Dilantin and his home dose of Dilantin was continued. Neurology reviewed patient and thought the likely cause of the aphasia was a seizure with no clear trigger to lower seizure threshold. Dilantin level was therapeutic at 21.1 so neurology recommended continuing the phenytoin. He had a carotid ultrasound done preliminary read of which showed carotid stenosis as per the CTA. Official read was pending at time of discharge. He was discharged on p.o. aspirin and has atorvastatin was increased to 80 mg daily on account of the severe carotid stenosis. He was referred to vascular surgery on outpatient basis and is follow-up with his primary care doctor and neurologist on outpatient basis also. He was initially to be discharged home on 09/20/2024. However he did not do very well with therapy and so was recommended that patient go to a skilled facility. On 09/21/2024, patient worked with therapy and did very well this time and so he elected to go home. He was therefore discharged home on 09/21/2024. He is to follow up with his PCP within 1-2 weeks. He is also to follow up with neurology within 1-2 weeks for his seizure disorder. Patient seen and examined prior to discharge. He felt well and had no complaints. Review of systems otherwise negative. He wanted to be discharged home. Labs and vitals reviewed. Home medication reviewed and reconciled. Physical Exam Const alert, oriented x3 and no apparent distress Constitutional Narrative: frail General Appearance: cooperative and comfortable Orientation / Consciousness: awake Exam Limitations: no limitations HEENT normocephalic, head/scalp atraumatic, hearing grossly normal bilaterally, moist oral mucous membranes and oropharynx normal Mouth: oral and palatal mucosa normal Eyes PERRL, EOMs intact bilaterally and conjunctivae normal Neck no lymphadenopathy and supple Lymph Lymphatic: no lymphadenopathy noted and no lymphedema noted Resp normal respiratory effort, normal air movement and clear to auscultation bilaterally Cardio regular rate, regular rhythm, S1 normal heart sound, S2 normal heart sound and no murmurs GI normal to inspection, nondistended, normoactive bowel sounds, soft to palpation, non-tender and non-distended Extremity normal to inspection, full ROM, normal capillary refill, no clubbing, cyanosis or edema and no calf tenderness General Extremity: no tenderness to palpation of joints or extremities Skin no rashes or lesions noted General Skin Exam: no breakdown Neuro oriented x3, CN's II-XII intact bilaterally, moves all extremities, no focal motor deficits and no sensory deficits noted Sensorium / Orientation: awake and alert Motor Exam: strength 5/5 throughout and general weakness Psych thought process normal and cooperative Appearance: appropriate Weight / BMI Weight Weight: 159 lb 2.78 oz Body Mass Index (BMI) 27.3 ABG / Lab / Microbiology Data 09/21/24 06:50 09/21/24 06:50 Laboratory: Laboratory Results - last 24 hr 09/21/24 06:50: WBC 9.2, RBC 3.93 L, Hgb 12.4 L, Hct 35.8 L, MCV 91.1, MCH 31.6, MCHC 34.6, RDW Std Deviation 42.0, RDW Coeff of Jalyn 12.7, Plt Count 156, MPV 11.5, Immature Gran % (Auto) 0.400, Neut % (Auto) 63.5, Lymph % (Auto) 23.9, [place] % (Auto) 10.6 H, Eos % (Auto) 1.1, Baso % (Auto) 0.5, Absolute Neuts (auto) 5.9, Absolute Lymphs (auto) 2.20, Nucleated RBC % 0, Sodium 140, Potassium 3.8, Chloride 110 H, Carbon Dioxide 24.0, Anion Gap 5, BUN 13, Creatinine 0.59 L, Estim Creat Clear Calc 74.91, Est GFR (MDRD) Af Amer 172, Est GFR (MDRD) Non-Af 142, BUN/Creatinine Ratio 21.9 H, Glucose 128 H, Calcium 8.8 D/C Instructions Discharge Diet: Low fat / Low cholesterol Discharge Activity: Return to Normal Activity Weight Bearing Status: Weight bearing as tolerated Call your doctor if you observe: Fever of 101 or Higher, Shortness of breath, Dizziness, Swelling in the ankles, Chest pain and - (breakthrough eizures) DC O2, CPAP, BIPAP Needs Home O2 Discharge instructions: No DC home with Oxygen: No Meaningful Use Info Meaningful Use Meaningful Use Diagnoses (Choose all that apply): None applicable Ischemic Stroke Statin Dosing Therapy Reference: STATIN DOSE THERAPY REFERENCE: * Patients > 75 years receive moderate or high dose statin therapy. * Patients 75 years or YOUNGER should receive HIGH intensity statin dose unless contraindicated. You will be required to document reason for non-treatment if statin daily dose does not meet guidelines. HIGH DOSE STATIN THERAPY DAILY Atorvastatin > than or = to 40 mg Rosuvastatin > than or = to 20 mg Amlodipine + Atorvastatin > than or = to 2.5/40 mg Ezetimibe + Simvastatin 10/80 mg Simvastatin 80mg Discharge Plan Admission Admit Date/Time: 09/18/24 19:39 Primary Reason for Your Visit: seizure, carotid stenosis Attending Provider: Unique Robert Primary Care Provider: Haresh Almanzar Consulting Providers: Vivi Chapa; Odalis Cintron; Jesus Foy; Cecy Kaur; Smiley Hidns; Lucie Welch; Hollis Rodrigues; Tamanna Hopson; KARL ALMAZAN; Rc Hraley; Radha Lopez; Paulina Prieto Instructions Patient Instructions: Living Well with Epilepsy, First Aid: Seizures, Carotid Artery Disease Discharge Orders/Prescriptions Prescriptions: New atorvastatin 80 mg Tablet 80 mg PO QHS Qty: 30 2RF Continued phenytoin sodium extended 100 MG capsule 300 mg PO BREAKFAST phenytoin sodium extended 100 MG capsule 200 mg PO QHS aspirin [Breeyz Chewable Aspirin] 81 mg tablet,chewable 81 mg PO DAILY Discontinued atorvastatin 20 MG tablet 80 mg PO DAILY Referrals / Follow Up: Deonte Tran MD [Med Staff - Active Staff] - Within 2 Weeks (see to establish care for carotid stenosis) Haresh Almanzar MD [Primary Care Provider] - Within 1 Week Disposition Disposition (needs filled in before D/C Order can be placed): Home, Self Care Charges/Coding Visit Charges Inpatient E&M: 87435 Disch Hosp >30min
[2024-09-21 13:53] VITALS: BP 116/65; PULSE 90; RESP 16; O2SAT 96
[2024-09-21 14:47] VITALS: BMI 27.3
--- NOTE | 2024-09-21 15:47 | CASEMGMT ---
[facility] notified to cancel SNF referral. ERIC Mary
== END 2024-09-21 16:20 | disposition home or self-care (01) | DRG 101 ==
LOC: ED 19:41 → PCU 20:39
PROVIDERS: Admitting Provider Family Medicine; Emergency Provider Emergency Medicine; PCP Family Medicine; Visit Provider Student in an Organized Health Care Education/Training Program
DX: G40.409 Other generalized epilepsy and epileptic syndromes, not intractable, without status epilepticus (principal); R47.01 Aphasia; I65.23 Occlusion and stenosis of bilateral carotid arteries; I35.1 Nonrheumatic aortic (valve) insufficiency; D64.9 Anemia, unspecified; F17.210 Nicotine dependence, cigarettes, uncomplicated; E78.5 Hyperlipidemia, unspecified; G47.33 Obstructive sleep apnea (adult) (pediatric); I67.2 Cerebral atherosclerosis; M48.02 Spinal stenosis, cervical region; J39.2 Other diseases of pharynx; Z79.891 Long term (current) use of opiate analgesic; R73.9 Hyperglycemia, unspecified; R29.709 NIHSS score 9; Z99.89 Dependence on other enabling machines and devices; Z90.49 Acquired absence of other specified parts of digestive tract; Z85.51 Personal history of malignant neoplasm of bladder
CPT/HCPCS: 36415; 70450; 70496; 70498; 70551; 71045; 80048; 80053; 80061; 80185; 82962; 83036; 83735; 84443; 84484; 85025; 85610; 85730; 92507; 92523; 92610; 93005; 93306; 93880; 95819; 97116; 97162; 97166; 97530; 97535; 99285; Q9957; Q9967; A4216; C8929

== ENCOUNTER 2024-11-25 18:15 | Inpatient (IN) | payer MEDICARE, SELFPAY ==
[2024-11-25] VITALS (9 sets, daily range): BP systolic 125–177; BP diastolic 72–92; PULSE 75–81; RESP 14–22; TEMP 36.4–36.9; O2SAT 94–100; BMI 27.6; BMI 25.8
--- NOTE | 2024-11-25 18:47 | EKG12_ITS ---
Test Reason : DIZZY Blood Pressure : */* mmHG Vent. Rate : 75 BPM Atrial Rate : 75 BPM P-R Int : 134 ms QRS Dur : 82 ms QT Int : 382 ms P-R-T Axes : 60 40 55 degrees QTcB Int : 426 ms Normal sinus rhythm Normal ECG Confirmed by LYNN WISE, PUJA ([id number]), content editor JODI FORTE ([id number]) on 11/27/2024 1:22:28 PM Referred By: Harinder Roman Confirmed By: PUAJ BAILEY MD
--- NOTE | 2024-11-25 18:47 | CT_ITS ---
PROCEDURE: STROKE CTA HEAD AND NECK W/CON 11/25/2024 REASON FOR EXAM: NEURO DEFICIT, ACUTE, STROKE SUSPECTED TECHNIQUE: CTA imaging of the head and neck from the aortic arch to the skull vertex with out constrast and with intravenous contrast. Multiplanar and multisequence images were obtained. 3D post processing with reformations, Maximum intensity projection (MIPs) Volume rendering and Shaded surface rendering was provided. One or more dose reduction techniques were used (e.g., Automated exposure control, adjustment of the mA and/or kV according to patient size, use of iterative reconstruction technique). FINDINGS: Aortic Arch: Normal size and branching pattern. Mild atherosclerotic plaque. Brachiocephalic and Subclavians: Mild atherosclerotic plaque without significant stenosis. RIGHT Carotid: Right CCA: Mild amount of calcified plaque. Right ICA: Large amount of irregular calcified plaque. Maximum stenosis (NASCET): 90 % Right ECA: Unremarkable. LEFT Carotid: Left CCA: Mild amount of calcified plaque. Left ICA: Moderate calcified and soft plaque. Maximum stenosis (NASCET): 60 % Left ECA: Unremarkable. Vertebrals: Codominant. Arise from the subclavians. Both vertebrals form the basilar. RIGHT Vertebral: Unremarkable. LEFT Vertebral: Unremarkable. Anatomy: [place] anatomy is normal. Aneurysm or avm: No intracranial aneurysms or large vascular malformations are identified. Anterior cerebral arteries: Unremarkable: Middle cerebral arteries: Unremarkable. Basilar artery: Unremarkable. Posterior cerebral arteries: Unremarkable. Other major branches of the posterior circulation: Unremarkable. Major venous structures: Unremarkable. Other findings: Neck: No lymphadenopathy. Lungs: Lung apices are clear. Bones: Bones are unremarkable. CT/STROKE CTA Head AND Neck W/Con IMPRESSION: No large vessel occlusion. Severe (90%) right carotid stenosis. Moderate (60%) left carotid stenosis. Patent vertebral arteries bilaterally. Reading Location: [id number]
--- NOTE | 2024-11-25 18:47 | CT_ITS ---
PROCEDURE: STROKE BRAIN/HEAD WITHOUT CONT 11/25/2024 REASON FOR EXAM: NEURO DEFICIT, ACUTE, STROKE SUSPECTED TECHNIQUE: Head CT without intravenous contrast. Coronal and Sagittal reconstruction series were provided. One or more dose reduction techniques were used (e.g., Automated exposure control, adjustment of the mA and/or kV according to patient size, use of iterative reconstruction technique. COMPARISON: 09/18/2024 FINDINGS: Brain: Low density in the periventricular white matter suggests mild chronic small vessel ischemic changes. CSF Spaces: Mild generalized cerebral atrophy Sinuses/Mastoids: Clear at visualized levels Bones: Unremarkable. CT/STROKE Brain/Head without Cont IMPRESSION: NO ACUTE INTRACRANIAL HEMORRHAGE Dr. Wyatt was notified on 11/25/2024 at 19:55. Reading Location: [id number]
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
[2024-11-25 19:26] LABS: Absolute Lymphocyte Count 2.26 X10^3/uL (0.83-4.51); Absolute Neutrophil Count 4.5 X10^3/uL (2.0-7.7); Basophil# 0.02 X10^3/uL; Basophil% 0.3 % (0-1); Eosinophil# 0.08 X10^3/uL; Eosinophils% 1.1 % (0-5); Hematocrit 38.3 % (40-54); Hemoglobin 13.2 g/dL (13.0-16.5); Lymphocyte # 2.26 X10^3/ul (0.83-4.51); Lymphocyte % 30.6 % (19-41); Mean Corp Hgb Conc 34.5 g/dL (32-36); Mean Corpuscular Hgb 31.7 pg (27.0-32.0); Mean Corpuscular Volume 92.1 fL (80-94); Mean Platelet Vol. 11.4 fl (6.2-12.0); Monocyte# 0.55 X10^3/uL; Monocyte% 7.5 % (0-10); NRBC Flagged by Analyzer 0 % (0-5); Neutrophil # 4.46 X10^3/uL (2.7-7.7); Neutrophil % 60.4 % (47-70); Platelet Count 160 K/mm3 (150-450); RBC Distribution Width CV 13.4 % (11.6-14.6); RBC Distribution Width SD 45.5 fl (35.1-43.9); Red Blood Count 4.16 M/mm3 (4.6-6.2); White Blood Count 7.4 K/mm3 (4.4-11.0)
--- NOTE | 2024-11-25 19:28 | NURSING ---
history information given by daughter Rachel.
[2024-11-25 19:42] LABS: Partial Thromboplast Time 28.9 Seconds (24.1-36.2); Prothrombin Time (Protime)PT. 13.8 SECONDS (11.7-14.9)
[2024-11-25 19:52] LABS: Anion Gap 10 (5-15); BUN 8 mg/dL (4-19); BUN/Creat Ratio 12.6 RATIO (10-20); Calcium,Total 9.2 mg/dL (7.6-11.0); Carbon Dioxide 23.6 mmol/L (21.0-32.0); Chloride 104 mmol/L (98-108); Creatinine, Serum 0.64 mg/dL (0.70-1.20); EST Glomerular Filtration Rate 100 (>60); Estimated Creatinine Clearance 75.24 ml/min (50-250); Glucose 139 mg/dL (70-99); Potassium 3.9 mmol/L (3.3-5.1); Sodium Level 138 mmol/L (133-145); Troponin T High Sensitivity 11 ng/L (<=22)
[2024-11-25 20:00] LABS: Bacteria 0 SEEN /hpf (None Seen); Mucous, Urine 0 SEEN /hpf (<or=2+); Squamous Epithelial Cells - UA 0 SEEN /hpf (0-5)
[2024-11-25 20:09] LABS: Color, Urine Straw (Yellow); Glucose, Dipstick 50 mg/dl (Normal); Ketone-Dipstick 50 mg/dl (Negative); Leukocyte Esterase-Dipstick Negative /ul (Negative); Nitrite-Dipstick Negative (Negative); Occult Blood-Urine 150 /ul (Negative); Protein-Dipstick 15 mg/dl (Negative); Urine Bilirubin Dipstick Negative (Negative); Urine Clarity Clear (Clear); Urine Urobilinogen Normal (Normal)
[2024-11-25 20:18] LABS: Red Blood Cells-Urine 5-10 SEEN /hpf (0-5); White Blood Cells 0-5 SEEN /hpf (0-5)
[2024-11-25 20:28] LABS: Phenytoin (Dilantin) Level 56.6 ug/mL (10.0-20.0)
[2024-11-25] MEDS: NORMAL SALINE 0.9% IV (20:36)
[2024-11-25] MEDS: PHENYTOIN NA IV (20:36)
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
[2024-11-25 21:51] LABS: Troponin T High Sens 2 HR 10 ng/L (<=22)
[2024-11-25] MEDS: Atorvastatin Calcium 80 MG Tablet PO (22:56)
[2024-11-26] VITALS (7 sets, daily range): BP systolic 121–154; BP diastolic 66–99; PULSE 66–86; RESP 16–20; TEMP 2.6–37; O2SAT 96–98; BMI 25.8
[2024-11-26 00:03] LABS: Troponin T High Sens 4 HR 10 ng/L (<=22)
[2024-11-26] MEDS: MELATONIN 10 MG TABLET PO (01:24)
[2024-11-26 06:43] LABS: Absolute Lymphocyte Count 2.69 X10^3/uL (0.83-4.51); Absolute Neutrophil Count 6.7 X10^3/uL (2.0-7.7); Basophil# 0.04 X10^3/uL; Basophil% 0.4 % (0-1); Eosinophil# 0.08 X10^3/uL; Eosinophils% 0.8 % (0-5); Hematocrit 41.2 % (40-54); Hemoglobin 14.3 g/dL (13.0-16.5); Lymphocyte # 2.69 X10^3/ul (0.83-4.51); Lymphocyte % 25.9 % (19-41); Mean Corp Hgb Conc 34.7 g/dL (32-36); Mean Corpuscular Hgb 32.1 pg (27.0-32.0); Mean Corpuscular Volume 92.4 fL (80-94); Mean Platelet Vol. 11.5 fl (6.2-12.0); Monocyte# 0.83 X10^3/uL; NRBC Flagged by Analyzer 0 % (0-5); Neutrophil # 6.72 X10^3/uL (2.7-7.7); Neutrophil % 64.5 % (47-70); Platelet Count 176 K/mm3 (150-450); RBC Distribution Width CV 13.4 % (11.6-14.6); RBC Distribution Width SD 45.9 fl (35.1-43.9); Red Blood Count 4.46 M/mm3 (4.6-6.2); White Blood Count 10.4 K/mm3 (4.4-11.0)
[2024-11-26 07:04] LABS: Anion Gap 13 (5-15); BUN 8 mg/dL (4-19); Calcium,Total 9.4 mg/dL (7.6-11.0); Carbon Dioxide 21.1 mmol/L (21.0-32.0); Chloride 103 mmol/L (98-108); Creatinine, Serum 0.63 mg/dL (0.70-1.20); EST Glomerular Filtration Rate 100 (>60); Estimated Creatinine Clearance 71.54 ml/min (50-250); Glucose 106 mg/dL (70-99); Potassium 4.5 mmol/L (3.3-5.1); Sodium Level 136 mmol/L (133-145)
--- NOTE | 2024-11-26 07:47 | MRI_ITS ---
PROCEDURE: BRAIN WITHOUT CONTRAST (MRIBR), 11/26/2024 REASON FOR EXAM: STROKE LIKE SYMPTOMS COMPARISON: 11/25/2024 and prior TECHNIQUE: Multisequence multiplanar MRI brain was performed without intravenous contrast. Contrast: None. FINDINGS: Variable overall moderate motion limitation. Some sequences are moderately to severely motion degraded. Cerebrum: No acute infarct, visible mass, or definite acute intracranial hemorrhage identified allowing for limitations. Similar bifrontal gliosis/encephalomalacia near the vertex, likely remote infarcts.. Moderate cerebral volume loss. Susceptibility effect in the bilateral basal ganglia could relate to microcalcification not visible on previous CTA versus remote microhemorrhages, more conspicuous than on the previous MRI 08/2024, possibly on a technical basis. Cerebellum: Grossly unremarkable. Brainstem: Grossly unremarkable. Ventricles/extra-axial spaces: Age appropriate appearance. Major flow voids: Better evaluated on recent CTA. Paranasal sinuses: Grossly unremarkable. Scalp/calvarium: Grossly unremarkable. Orbits: Grossly unremarkable within limits of nondedicated technique. Other: None. MRI/Brain without Contrast IMPRESSION: 1. Motion limited exam. No specific evidence of an acute intracranial process a llowing for limitations. 2. Additional description as above. Reading Location: [id number]
[2024-11-26] MEDS: Enoxaparin 40 MG/0.4 ML Syringe SC (08:17)
[2024-11-26] MEDS: Aspirin 81 MG TAB.CHEW PO (08:17)
--- NOTE | 2024-11-26 15:10 | CASEMGMT ---
Social Work SW met with pt and completed PHQ9 depression screen as pt presents with potential stroke. Pt score of 3 indicating minimal depression. Pt dgt in room and indicates pt is not being honest with answers. SW provided pt with list of area counselors. PT is accepting of information. ERIC Mary
--- NOTE | 2024-11-26 15:20 | PN_ITS ---
Subjective Subjective Patient seen and examined. He had a sitter by him. He was more alert and communicative. He was alert and oriented to self, place and time. He tells me he thinks he had a seizure. He says he was compliant with his meds. He denied any pain, fever, chills, cough, chest pain, palpitations, dizziness, nausea, vomiting or any other symptoms. Review of systems is otherwise negative. He has remained hemodynamically stable. Objective Data Objective Data Vital Signs: Vital Signs Temp Pulse Resp BP Pulse Ox O2 Del Method 98.2 F 82 19 H 130/90 H 98 Room Air 11/26/24 11:51 11/26/24 11:51 11/26/24 11:51 11/26/24 11:51 11/26/24 11:51 11/26/24 11:51 Oxygen Delivery Method Room Air Weight: 155 lb 6.814 oz Body Mass Index (BMI) 25.8 Intake & Output: Intake and Output for Last 24 Hours 11/24/24 11/25/24 11/26/24 23:59 23:59 23:59 Intake Total 72 / 192 240 / 240 Output Total 500 / 500 Balance 72 / 192 -260 / -260 Lab / Micro Data 11/26/24 05:20 11/26/24 05:20 Labs: Laboratory Results - last 24 hr 11/25/24 19:05: WBC 7.4, RBC 4.16 L, Hgb 13.2, Hct 38.3 L, MCV 92.1, MCH 31.7, MCHC 34.5, RDW Std Deviation 45.5 H, RDW Coeff of Jalyn 13.4, Plt Count 160, MPV 11.4, Immature Gran % (Auto) 0.100, Neut % (Auto) 60.4, Lymph % (Auto) 30.6, [place] % (Auto) 7.5, Eos % (Auto) 1.1, Baso % (Auto) 0.3, Absolute Neuts (auto) 4.5, Absolute Lymphs (auto) 2.26, Nucleated RBC % 0, PT 13.8, INR 1.0, APTT 28.9, Sodium 138, Potassium 3.9, Chloride 104, Carbon Dioxide 23.6, Anion Gap 10, BUN 8, Creatinine 0.64 L, Estim Creat Clear Calc 75.24, Est GFR (MDRD) Non- Af 100, BUN/Creatinine Ratio 12.6, Glucose 139 H, Calcium 9.2, Troponin T High Sens 11, Phenytoin Cancelled 11/25/24 19:05: Phenytoin 56.6 H* 11/25/24 19:54: Urine Color Straw, Urine Clarity Clear, Urine pH 6.0, Ur Specific [place] 1.020, Urine Protein 15 H, Urine Glucose (UA) 50 H, Urine Ketones 50 H, Urine Occult Blood 150 H, Urine Nitrite Negative, Urine Bilirubin Negative, Urine Urobilinogen Normal, Ur Leukocyte Esterase Negative, Urine RBC 5-10 SEEN, Urine WBC 0-5 SEEN, Ur Squamous Epith Cells 0 SEEN, Urine Bacteria 0 SEEN, Urine Mucus 0 SEEN 11/25/24 21:15: Troponin T Hi Sens 2 Hr 10 11/25/24 22:50: Troponin T Hi Sens 4Hr 10 11/26/24 05:20: WBC 10.4, RBC 4.46 L, Hgb 14.3, Hct 41.2, MCV 92.4, MCH 32.1 H, MCHC 34.7, RDW Std Deviation 45.9 H, RDW Coeff of Jalyn 13.4, Plt Count 176, MPV 11.5, Immature Gran % (Auto) 0.400, Neut % (Auto) 64.5, Lymph % (Auto) 25.9, [place] % (Auto) 8.0, Eos % (Auto) 0.8, Baso % (Auto) 0.4, Absolute Neuts (auto) 6.7, Absolute Lymphs (auto) 2.69, Nucleated RBC % 0, Sodium 136, Potassium 4.5, Chloride 103, Carbon Dioxide 21.1, Anion Gap 13, BUN 8, Creatinine 0.63 L, Estim Creat Clear Calc 71.54, Est GFR (MDRD) Non-Af 100, BUN/Creatinine Ratio 13.0, G lucose 106 H, Calcium 9.4 Radiography Diagnostic Testing: Radiology Impression Brain CT 11/25/24 18:47 IMPRESSION: NO ACUTE INTRACRANIAL HEMORRHAGE Dr. Wyatt was notified on 11/25/2024 at 19:55. Reading Location: [id number] Head/Neck CTA 11/25/24 18:47 IMPRESSION: No large vessel occlusion. Severe (90%) right carotid stenosis. Moderate (60%) left carotid stenosis. Patent vertebral arteries bilaterally. Reading Location: [facility] Brain MRI 11/26/24 07:47 IMPRESSION: 1. Motion limited exam. No specific evidence of an acute intracranial process allowing for limitations. 2. Additional description as above. Reading Location: [facility] Physical Exam Const alert, oriented x3 and no apparent distress Constitutional Narrative: intermittent confusion. HEENT normocephalic and gingiva normal Neck no lymphadenopathy and supple Lymph Lymphatic: no lymphadenopathy noted and no lymphedema noted Resp normal respiratory effort Cardio regular rate, regular rhythm, S1 normal heart sound, S2 normal heart sound and no murmurs GI normal to inspection, nondistended, normoactive bowel sounds, soft to palpation, non-tender and non-distended Extremity normal capillary refill, no clubbing, cyanosis or edema and no calf tenderness General Extremity: no tenderness to palpation of joints or extremities Skin General Skin Exam: no breakdown Neuro CN's II-XII intact bilaterally and no focal motor deficits Neuro Narrative: patient alert and oriented x 3, moves all extremities. Has episodic confusion and agitation. Motor Exam: strength 5/5 throughout and general weakness Psych Psych Narrative: episodic confusion, agitation. Assessment & Plan Assessment/Plan (1) Altered mental status: (2) Generalized weakness: PLAN: Plan #Acute encephalopathy * Thought to be possibly due to seizure. Patient alert and communicative now. Was told that he had not been compliant with his diet monitoring but his Dilantin levels were not low. Patient put back on his Dilantin. Consulted neurology. Await recs. * PT OT on board. Fall precautions. * CT of the brain showed no acute intracranial pathology. * CTA head and neck showed no large vessel occlusion and showed severe 90% right-sided carotid stenosis and moderate left-sided carotid stenosis of 60%. * MRI of the brain showed no evidence of a stroke * consult vascular surgery. * Carotid duplex from 09/19/2024 showed severe is more than 70% stenosis of the right extracranial internal carotid and mild less than 50% stenosis of the left extracranial internal carotid. * * #Severe carotid stenosis: * Carotid ultrasound as above from 2024 and CTA head and neck also as above. He was referred to vascular surgery during his last visit in August 2024 but it is not clear if he did see vascular surgery or not. * In light of his current symptoms we will consult vascular surgery. * #History of seizure disorder * On phenytoin. Neurology consulted. There is question of whether he may have had a seizure and patient also thinks she may have had a seizure. * neurology consulted * on dilantin. * Patient alert and communicative now * On Dilantin 300 mg in the morning and 200 mg nightly. Will continue holding these as his Dilantin level was elevated at 56.6 on admission. * #DVT prophylaxis: SCDs Charges/Coding Visit Charges Inpatient E&M: 58933 Subs Hosp L2
--- NOTE | 2024-11-26 15:35 | CASEMGMT ---
Discharge Planning A list of?SNF providers including quality and resource use data and consistent with the patient's preferred geographic region, medical needs, and insurance network was created in [employer] Guide.? This list was provided to the SW. Adrianna Gooden Discharge Planning Asst.
--- NOTE | 2024-11-26 16:25 | CASEMGMT ---
Met with patient to complete REYNAGA form. Pt was unable to comprehend. Unable to reach pts daughter. Original form placed in pt?s chart and copy placed in pts room with my contact information attached. Adrianna Gooden, Discharge Planning Asst
[2024-11-26] MEDS: Atorvastatin Calcium 80 MG Tablet PO (20:42)
[2024-11-27 03:00] VITALS: BP 157/85; PULSE 88; RESP 18; TEMP 36.3; O2SAT 96
[2024-11-27 06:31] LABS: Absolute Lymphocyte Count 2.44 X10^3/uL (0.83-4.51); Absolute Neutrophil Count 7.6 X10^3/uL (2.0-7.7); Basophil# 0.02 X10^3/uL; Basophil% 0.2 % (0-1); Eosinophil# 0.09 X10^3/uL; Eosinophils% 0.8 % (0-5); Hematocrit 40.7 % (40-54); Hemoglobin 14.3 g/dL (13.0-16.5); Lymphocyte # 2.44 X10^3/ul (0.83-4.51); Lymphocyte % 21.9 % (19-41); Mean Corp Hgb Conc 35.1 g/dL (32-36); Mean Corpuscular Volume 91.1 fL (80-94); Mean Platelet Vol. 11.3 fl (6.2-12.0); Monocyte# 0.97 X10^3/uL; Monocyte% 8.7 % (0-10); NRBC Flagged by Analyzer 0 % (0-5); Neutrophil # 7.58 X10^3/uL (2.7-7.7); Platelet Count 167 K/mm3 (150-450); RBC Distribution Width CV 13.2 % (11.6-14.6); RBC Distribution Width SD 43.9 fl (35.1-43.9); Red Blood Count 4.47 M/mm3 (4.6-6.2); White Blood Count 11.1 K/mm3 (4.4-11.0)
[2024-11-27 07:08] LABS: Anion Gap 10 (5-15); BUN 11 mg/dL (4-19); BUN/Creat Ratio 14.9 RATIO (10-20); Calcium,Total 9.3 mg/dL (7.6-11.0); Carbon Dioxide 27.1 mmol/L (21.0-32.0); Chloride 104 mmol/L (98-108); EST Glomerular Filtration Rate 97 (>60); Estimated Creatinine Clearance 71.54 ml/min (50-250); Glucose 123 mg/dL (70-99); Potassium 3.9 mmol/L (3.3-5.1); Sodium Level 141 mmol/L (133-145)
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
[2024-11-27 08:43] VITALS: BP 145/92; PULSE 94; RESP 16; TEMP 36.8; O2SAT 99
[2024-11-27] MEDS: Aspirin 81 MG TAB.CHEW PO (09:28)
[2024-11-27] MEDS: Enoxaparin 40 MG/0.4 ML Syringe SC (09:28)
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
--- NOTE | 2024-11-27 12:09 | PN_ITS ---
Subjective Subjective Patient seen and examined this morning. He had no active complaints. He is alert and oriented x 3 but he still does have intermittent confusion. Review of systems otherwise negative. Objective Data Objective Data Vital Signs: Vital Signs Temp Pulse Resp BP Pulse Ox O2 Del Method 98.2 F 94 16 145/92 H 99 Room Air 11/27/24 08:43 11/27/24 08:43 11/27/24 08:43 11/27/24 08:43 11/27/24 08:43 11/27/24 08:45 Oxygen Delivery Method Room Air Weight: 155 lb 6.814 oz Body Mass Index (BMI) 25.8 Intake & Output: Intake and Output for Last 24 Hours 11/25/24 11/26/24 11/27/24 23:59 23:59 23:59 Intake Total 72 / 192 290 / 290 Output Total 600 / 600 705 / 705 Balance 72 / 192 -310 / -310 -705 / -705 Lab / Micro Data 11/27/24 06:00 11/27/24 06:00 Labs: Laboratory Results - last 24 hr 11/27/24 06:00: WBC 11.1 H, RBC 4.47 L, Hgb 14.3, Hct 40.7, MCV 91.1, MCH 32.0, MCHC 35.1, RDW Std Deviation 43.9, RDW Coeff of Jalyn 13.2, Plt Count 167, MPV 11.3, Immature Gran % (Auto) 0.400, Neut % (Auto) 68.0, Lymph % (Auto) 21.9, [place] % (Auto) 8.7, Eos % (Auto) 0.8, Baso % (Auto) 0.2, Absolute Neuts (auto) 7.6, Absolute Lymphs (auto) 2.44, Nucleated RBC % 0, Sodium 141, Potassium 3.9, Chloride 104, Carbon Dioxide 27.1, Anion Gap 10, BUN 11, Creatinine 0.70, Estim Creat Clear Calc 71.54, Est GFR (MDRD) Non-Af 97, BUN/Creatinine Ratio 14.9, G lucose 123 H, Calcium 9.3 Physical Exam Const alert and oriented x3 Constitutional Narrative: intermittent confusion. General Appearance: cooperative Orientation / Consciousness: confused HEENT normocephalic and moist oral mucous membranes Eyes PERRL and EOMs intact bilaterally Neck no lymphadenopathy and supple Lymph Lymphatic: no lymphadenopathy noted and no lymphedema noted Resp normal respiratory effort, normal air movement and clear to auscultation bilaterally Cardio regular rate, regular rhythm, S1 normal heart sound, S2 normal heart sound and no murmurs GI normal to inspection, nondistended, normoactive bowel sounds, soft to palpation, non-tender and non-distended Extremity normal capillary refill, no clubbing, cyanosis or edema and no calf tenderness General Extremity: no tenderness to palpation of joints or extremities; Negative for edema Skin General Skin Exam: no breakdown Neuro CN's II-XII intact bilaterally, no focal motor deficits and no sensory deficits noted Neuro Narrative: patient alert and oriented x 3, moves all extremities. Has episodic confusion and agitation. Motor Exam: strength 5/5 throughout and general weakness Psych Psych Narrative: episodic confusion, agitation. Mood & Affect: flat affect Assessment & Plan Assessment/Plan (1) Altered mental status: (2) Generalized weakness: PLAN: Plan #Acute encephalopathy * Thought to be possibly due to seizure. Patient alert and communicative now. Was told that he had not been compliant with his diet monitoring but his Dilantin levels were not low. Patient put back on his Dilantin. Consulted neurology. Await recs. * PT OT on board. Fall precautions. * CT of the brain showed no acute intracranial pathology. * CTA head and neck showed no large vessel occlusion and showed severe 90% right-sided carotid stenosis and moderate left-sided carotid stenosis of 60%. * MRI of the brain showed no evidence of a stroke * consult vascular surgery. * Carotid duplex from 09/19/2024 showed severe is more than 70% stenosis of the right extracranial internal carotid and mild less than 50% stenosis of the left extracranial internal carotid. * * * #Severe carotid stenosis: * Carotid ultrasound as above from 2024 and CTA head and neck also as above. He was referred to vascular surgery during his last visit in August 2024 but it is not clear if he did see vascular surgery or not. * Vascular surgery consulted, await recs #History of seizure disorder * On phenytoin. There is question of whether he may have had a seizure and patient also thinks she may have had a seizure. * neurology consulted * on dilantin. * Patient alert and communicative now * On Dilantin 300 mg in the morning and 200 mg nightly. Will continue holding these as his Dilantin level was elevated at 56.6 on admission. * Per neurology, on their review today he had asterixis which is usually caused by toxic metabolic etiology and now wondering if phenytoin could be contributing to that. Neurology therefore recommends discontinuing phenytoin and starting Keppra 500 mg twice daily after given 1 g of Keppra IV loading dose. * #DVT prophylaxis: SCDs Disposition: will benefit from placement. Case management on board. Charges/Coding Visit Charges Inpatient E&M: 97590 Subs Hosp L2
[2024-11-27] MEDS: levETIRAcetam IV 1,000 MG/100 ML BAG 400 MG IV (12:45)
--- NOTE | 2024-11-27 13:45 | CASEMGMT ---
Discharge Planning Referral sent to [facility]. Adrianna Gooden DC Planning Asst.
[2024-11-27 13:56] LABS: AST(SGOT) 19 U/L (<=37); Alanine Aminotransfer ALT/SGPT 18 U/L (<=46); Albumin, Serum 4.3 g/dL (3.4-4.8); Alkaline Phosphatase 135 U/L (40-129); Globulin 2.5 g/dL (2.2-4.2); Protein, Total 6.7 g/dL (5.9-8.4); Total Bilirubin 0.17 mg/dL (0.00-1.30)
--- NOTE | 2024-11-27 14:07 | CASEMGMT ---
Social Work SW met with pt's dgt Rachel and son. Pt sleeping soundly throughout conversation and SW did not wake. SW reviewed therapy notes and discussed discharge plan with family. Family does not feel pt can return home alone at this time and that pt will need short term SNF placement prior to return home. A list of providers including quality and resource use data and consistent with the patient?s preferred geographic region, medical needs, and insurance network were provided from the [employer] Guide. Pt dgt preferred provider is [facility]. Rachel does state she has been talking to pt regarding need for SNF. DC regulatory affairs assistant notified and to send referral. SW to continue to follow for dc needs. ERIC Mary
[2024-11-27 14:58] VITALS: BP 139/77; PULSE 74; RESP 16; TEMP 36.2; O2SAT 97
[2024-11-27 19:00] VITALS: PULSE 79
[2024-11-27 22:00] VITALS: BP 147/73; PULSE 91; RESP 16; TEMP 36.6; O2SAT 95
[2024-11-27] MEDS: Atorvastatin Calcium 80 MG Tablet PO (22:15)
[2024-11-27] MEDS: levETIRAcetam 500 MG Tablet PO (22:16)
--- NOTE | 2024-11-28 01:07 | PCM.HOSP.N ---
Hospitalist Note Patient extremely restless, attempting get out of bed, setting his alarm off frequently. Will trial low-dose Seroquel.
[2024-11-28 05:07] LABS: Phenytoin (Dilantin) Level 52.5 ug/mL (10.0-20.0)
[2024-11-28 05:24] LABS: Absolute Lymphocyte Count 2.84 X10^3/uL (0.83-4.51); Basophil# 0.04 X10^3/uL; Basophil% 0.3 % (0-1); Eosinophil# 0.11 X10^3/uL; Eosinophils% 0.7 % (0-5); Hematocrit 42.4 % (40-54); Hemoglobin 14.9 g/dL (13.0-16.5); Lymphocyte # 2.84 X10^3/ul (0.83-4.51); Lymphocyte % 18.6 % (19-41); Mean Corp Hgb Conc 35.1 g/dL (32-36); Mean Platelet Vol. 11.1 fl (6.2-12.0); Monocyte# 1.19 X10^3/uL; Monocyte% 7.8 % (0-10); NRBC Flagged by Analyzer 0 % (0-5); Neutrophil # 11.03 X10^3/uL (2.7-7.7); Neutrophil % 72.1 % (47-70); Platelet Count 182 K/mm3 (150-450); RBC Distribution Width CV 13.2 % (11.6-14.6); RBC Distribution Width SD 44.1 fl (35.1-43.9); Red Blood Count 4.66 M/mm3 (4.6-6.2); White Blood Count 15.3 K/mm3 (4.4-11.0)
[2024-11-28 05:44] LABS: Anion Gap 12 (5-15); BUN 16 mg/dL (4-19); BUN/Creat Ratio 20.8 RATIO (10-20); Calcium,Total 9.2 mg/dL (7.6-11.0); Carbon Dioxide 22.8 mmol/L (21.0-32.0); Chloride 102 mmol/L (98-108); Creatinine, Serum 0.75 mg/dL (0.70-1.20); EST Glomerular Filtration Rate 95 (>60); Estimated Creatinine Clearance 71.54 ml/min (50-250); Glucose 154 mg/dL (70-99); Potassium 3.5 mmol/L (3.3-5.1); Sodium Level 136 mmol/L (133-145)
[2024-11-28 06:00] VITALS: BP 131/67; PULSE 82; RESP 16; TEMP 36.5; O2SAT 99
[2024-11-28 08:43] VITALS: BP 116/62; PULSE 86; RESP 18; TEMP 36.3; O2SAT 95
[2024-11-28] MEDS: Aspirin 81 MG TAB.CHEW PO (08:46)
[2024-11-28] MEDS: Enoxaparin 40 MG/0.4 ML Syringe SC (08:46)
[2024-11-28] MEDS: levETIRAcetam 500 MG Tablet PO ×2 (08:46→22:20)
--- NOTE | 2024-11-28 09:31 | CASEMGMT ---
Addendum entered by Adrianna Gooden 11/29/24 09:39: Updates sent to [facility]. Adrianna Gooden DC Planning Asst. Original Note: [facility] has accepted and will submit for precert. Adrianna Gooden DC Planning Asst.
--- NOTE | 2024-11-28 11:35 | PN_ITS ---
Subjective Subjective Patient seen and examined. He had no complaints today. He was lying calmly in bed. He does still appear to have intermittent confusion. Review of systems otherwise negative. Objective Data Objective Data Vital Signs: Vital Signs Temp Pulse Resp BP Pulse Ox O2 Del Method 97.4 F L 86 18 116/62 95 Room Air 11/28/24 08:43 11/28/24 08:43 11/28/24 08:43 11/28/24 08:43 11/28/24 08:43 11/28/24 08:43 Oxygen Delivery Method Room Air Weight: 155 lb 6.814 oz Body Mass Index (BMI) 25.8 Intake & Output: Intake and Output for Last 24 Hours 11/26/24 11/27/24 11/28/24 23:59 23:59 23:59 Intake Total 290 / 290 100 / 100 0 / 0 Output Total 600 / 600 705 / 705 Balance -310 / -310 -605 / -605 0 / 0 Lab / Micro Data 11/28/24 05:04 11/28/24 05:04 Labs: Laboratory Results - last 24 hr 11/26/24 09:16: Phenytoin 52.5 H* 11/27/24 06:00: Total Bilirubin 0.17, Direct Bilirubin 0.10, AST 19, ALT 18, A lkaline Phosphatase 135 H, Total Protein 6.7, Albumin 4.3, Globulin 2.5 11/28/24 05:04: WBC 15.3 H, RBC 4.66, Hgb 14.9, Hct 42.4, MCV 91.0, MCH 32.0, MCHC 35.1, RDW Std Deviation 44.1 H, RDW Coeff of Jalyn 13.2, Plt Count 182, MPV 11.1, Immature Gran % (Auto) 0.500, Neut % (Auto) 72.1 H, Lymph % (Auto) 18.6 L, [place] % (Auto) 7.8, Eos % (Auto) 0.7, Baso % (Auto) 0.3, Absolute Neuts (auto) 11.0 H, Absolute Lymphs (auto) 2.84, Nucleated RBC % 0, Sodium 136, Potassium 3.5, Chloride 102, Carbon Dioxide 22.8, Anion Gap 12, BUN 16, Creatinine 0.75, Estim Creat Clear Calc 71.54, Est GFR (MDRD) Non-Af 95, BUN/Creatinine Ratio 20.8 H, Glucose 154 H, Calcium 9.2 Physical Exam Const alert and no apparent distress Constitutional Narrative: intermittent confusion. General Appearance: cooperative Orientation / Consciousness: confused HEENT normocephalic, moist oral mucous membranes and gingiva normal Eyes PERRL and EOMs intact bilaterally Neck no lymphadenopathy and supple Lymph Lymphatic: no lymphadenopathy noted and no lymphedema noted Resp normal respiratory effort, normal air movement and clear to auscultation bilaterally Cardio regular rate, regular rhythm, S1 normal heart sound, S2 normal heart sound and no murmurs GI normal to inspection, nondistended, normoactive bowel sounds, soft to palpation, non-tender and non-distended Extremity normal capillary refill, no clubbing, cyanosis or edema and no calf tenderness General Extremity: no tenderness to palpation of joints or extremities; Negative for edema Skin General Skin Exam: no breakdown Neuro CN's II-XII intact bilaterally, no focal motor deficits and no sensory deficits noted Neuro Narrative: patient alert and oriented x 3, moves all extremities. Has episodic confusion and agitation. Motor Exam: strength 5/5 throughout and general weakness Psych Psych Narrative: episodic confusion, agitation. Mood & Affect: flat affect Assessment & Plan Assessment/Plan (1) Altered mental status: (2) Generalized weakness: PLAN: Plan #Acute encephalopathy * Thought to be possibly due to seizure. Patient alert and communicative now. Was told that he had not been compliant with his diet monitoring but his Dilantin levels were not low. Patient put back on his Dilantin. Consulted neurology. Await recs. * PT OT on board. Fall precautions. * CT of the brain showed no acute intracranial pathology. * CTA head and neck showed no large vessel occlusion and showed severe 90% right-sided carotid stenosis and moderate left-sided carotid stenosis of 60%. * MRI of the brain showed no evidence of a stroke * Carotid duplex from 09/19/2024 showed severe is more than 70% stenosis of the right extracranial internal carotid and mild less than 50% stenosis of the left extracranial internal carotid. * * * #Severe carotid stenosis: * Carotid ultrasound as above from 2024 and CTA head and neck also as above. He was referred to vascular surgery during his last visit in August 2024 but it is not clear if he did see vascular surgery or not. * Vascular surgery consulted, who recommended right carotid endarterectomy on outpatient basis and to continue aspirin and statin and recommend adding on Plavix. * * #History of seizure disorder * On phenytoin. There is question of whether he may have had a seizure and patient also thinks she may have had a seizure. * neurology consulted * on dilantin. * Patient alert and communicative now * On Dilantin 300 mg in the morning and 200 mg nightly. Will continue holding these as his Dilantin level was elevated at 56.6 on admission. * Per neurology, he had asterixis which is usually caused by toxic metabolic etiology and now wondering if phenytoin could be contributing to that. Neurology therefore recommends discontinuing phenytoin and starting Keppra 500 mg twice daily after given 1 g of Keppra IV loading dose. * Patient is now on Keppra 500 mg p.o. twice daily * #Leukocytosis: WBCs up to 15.3 today. No clear source of infection. Will check urinalysis #DVT prophylaxis: SCDs Disposition: will benefit from placement. Case management on board. For placement pending pre-CERT Charges/Coding Visit Charges Inpatient E&M: 02767 Subs Hosp L2
[2024-11-28 15:00] VITALS: BP 118/80; PULSE 88; RESP 18; TEMP 36.6; O2SAT 95
[2024-11-28 19:00] VITALS: PULSE 89
[2024-11-28 21:00] VITALS: BP 138/74; PULSE 85; RESP 16; TEMP 36.7; O2SAT 99
[2024-11-28] MEDS: Atorvastatin Calcium 80 MG Tablet PO (22:20)
[2024-11-29 01:00] LABS: Bacteria 0 SEEN /hpf (None Seen); Mucous, Urine 0 SEEN /hpf (<or=2+); Red Blood Cells-Urine 0 SEEN /hpf (0-5); Squamous Epithelial Cells - UA 0 SEEN /hpf (0-5); White Blood Cells 0 SEEN /hpf (0-5)
[2024-11-29 03:00] VITALS: PULSE 77
[2024-11-29 03:13] LABS: Glucose, Dipstick Normal (Normal); Ketone-Dipstick Negative (Negative); Leukocyte Esterase-Dipstick Negative /ul (Negative); Nitrite-Dipstick Negative (Negative); Occult Blood-Urine Negative /ul (Negative); Protein-Dipstick 15 mg/dl (Negative); Specific Gravity, Urine 1.015 (1.002-1.030); Urine Bilirubin Dipstick Negative (Negative); Urine Urobilinogen Normal (Normal)
[2024-11-29 03:24] LABS: Color, Urine Yellow (Yellow); Urine Clarity Clear (Clear)
[2024-11-29 04:00] VITALS: BP 125/75; PULSE 87; RESP 18; TEMP 36.6; O2SAT 94
[2024-11-29 05:17] LABS: Absolute Lymphocyte Count 2.71 X10^3/uL (0.83-4.51); Absolute Neutrophil Count 5.7 X10^3/uL (2.0-7.7); Basophil# 0.02 X10^3/uL; Basophil% 0.2 % (0-1); Eosinophil# 0.11 X10^3/uL; Eosinophils% 1.2 % (0-5); Hematocrit 39.9 % (40-54); Lymphocyte # 2.71 X10^3/ul (0.83-4.51); Lymphocyte % 29.1 % (19-41); Mean Corp Hgb Conc 35.1 g/dL (32-36); Mean Corpuscular Hgb 31.8 pg (27.0-32.0); Mean Corpuscular Volume 90.7 fL (80-94); Mean Platelet Vol. 11.8 fl (6.2-12.0); Monocyte# 0.77 X10^3/uL; Monocyte% 8.3 % (0-10); NRBC Flagged by Analyzer 0 % (0-5); Neutrophil # 5.67 X10^3/uL (2.7-7.7); Platelet Count 168 K/mm3 (150-450); RBC Distribution Width CV 13.3 % (11.6-14.6); RBC Distribution Width SD 43.9 fl (35.1-43.9); White Blood Count 9.3 K/mm3 (4.4-11.0)
[2024-11-29 06:10] LABS: Anion Gap 11 (5-15); BUN 15 mg/dL (4-19); BUN/Creat Ratio 23.8 RATIO (10-20); Calcium,Total 9.1 mg/dL (7.6-11.0); Carbon Dioxide 22.2 mmol/L (21.0-32.0); Chloride 105 mmol/L (98-108); Creatinine, Serum 0.65 mg/dL (0.70-1.20); EST Glomerular Filtration Rate 100 (>60); Estimated Creatinine Clearance 71.54 ml/min (50-250); Glucose 114 mg/dL (70-99); Potassium 3.4 mmol/L (3.3-5.1); Sodium Level 138 mmol/L (133-145)
[2024-11-29] MEDS: Enoxaparin 40 MG/0.4 ML Syringe SC (08:38)
[2024-11-29] MEDS: Aspirin 81 MG TAB.CHEW PO (08:39)
[2024-11-29] MEDS: levETIRAcetam 500 MG Tablet PO (08:39)
[2024-11-29 08:48] VITALS: BP 141/81; PULSE 75; RESP 18; TEMP 36.6; O2SAT 98
--- NOTE | 2024-11-29 14:00 | PCM.PN.SRG ---
Subjective Subjective Saw patient who was up to the bedside chair with his daughter present at bedside. Patient had no specific complaints. His daughter feels he is doing a bit better each day. We discussed his CTA findings with respect to his carotid artery disease and the recommendation for consideration of surgical intervention on an outpatient basis. Objective Data Objective Data Vital Signs: Vital Signs Temp Pulse Resp BP Pulse Ox O2 Del Method 97.8 F 75 18 141/81 H 98 Room Air 11/29/24 08:48 11/29/24 08:48 11/29/24 08:48 11/29/24 08:48 11/29/24 08:48 11/29/24 12:33 Oxygen Delivery Method Room Air Weight: 155 lb 6.814 oz Body Mass Index (BMI) 25.8 Intake & Output: Intake and Output for Last 24 Hours 11/27/24 11/28/24 11/29/24 23:59 23:59 23:59 Intake Total 100 / 100 700 / 800 500 / 500 Output Total 705 / 705 0 / 0 Balance -605 / -605 700 / 800 500 / 500 Lab / Micro Data 11/29/24 04:13 11/29/24 04:13 Labs: Laboratory Results - last 24 hr 11/29/24 00:45: Urine Color Yellow, Urine Clarity Clear, Urine pH 6.0, Ur Specific [place] 1.015, Urine Protein 15 H, Urine Glucose (UA) Normal, Urine Ketones Negative, Urine Occult Blood Negative, Urine Nitrite Negative, Urine Bilirubin Negative, Urine Urobilinogen Normal, Ur Leukocyte Esterase Negative, Urine RBC 0 SEEN, Urine WBC 0 SEEN, Ur Squamous Epith Cells 0 SEEN, Urine Bacteria 0 SEEN, Urine Mucus 0 SEEN 11/29/24 04:13: WBC 9.3, RBC 4.40 L, Hgb 14.0, Hct 39.9 L, MCV 90.7, MCH 31.8, MCHC 35.1, RDW Std Deviation 43.9, RDW Coeff of Jalyn 13.3, Plt Count 168, MPV 11.8, Immature Gran % (Auto) 0.200, Neut % (Auto) 61.0, Lymph % (Auto) 29.1, [place] % (Auto) 8.3, Eos % (Auto) 1.2, Baso % (Auto) 0.2, Absolute Neuts (auto) 5.7, Absolute Lymphs (auto) 2.71, Nucleated RBC % 0, Sodium 138, Potassium 3.4, Chloride 105, Carbon Dioxide 22.2, Anion Gap 11, BUN 15, Creatinine 0.65 L, Estim Creat Clear Calc 71.54, Est GFR (MDRD) Non-Af 100, BUN/Creatinine Ratio 23.8 H, Glucose 114 H, Calcium 9.1 Physical Exam Const alert, oriented x3 and no apparent distress HEENT head/scalp atraumatic, hearing grossly normal bilaterally and external ears normal Eyes General Eye: normal appearance of both eyes Neck General: normal visual inspection and trachea midline Resp normal respiratory effort, no retractions and no use of accessory muscles Effort and Inspection: able to speak in complete sentences; Negative for labored, grunting or stridor Cardio Rate: regular rate Rhythm: regular rhythm Extremity no clubbing, cyanosis or edema Skin no rashes or lesions noted Neuro moves all extremities Psych affect normal and speech normal Appearance: grossly normal Attitude: calm Activity / Motor Behavior: appropriate eye contact Assessment & Plan Assessment/Plan (1) Stenosis of right carotid artery: PLAN: Plan Patient and his daughter had all questions answered to their apparent satisfaction with respect to his carotid disease. They are agreeable to follow-up in the office after discharge to discuss possible R CEA; discussed that would want to make sure his antiseizure medications are titrated and felt to be stable prior to any surgical intervention. Will have the office reach out to schedule. Recommend continuing with ASA 81mg daily and Atorvastatin 80mg daily for medical management. Charges/Coding Visit Charges Inpatient E&M: 58709 Subs Hosp L1
--- NOTE | 2024-11-29 14:12 | CASEMGMT ---
[facility] has obtained auth to admit. Adrianna Gooden DC Planning Asst.
--- NOTE | 2024-11-29 14:30 | PCM.TXEXTCAR ---
Diet Diet Order/Speech Therapy: 11/25/24 22:42 Diet: Regular - General Food consistency:: Regular Liquid Consistency:: Regular/Thin Routine Orders/Code Status Routine Lab Work: CBC and BMP Code Status: DNRCC-A DC O2, CPAP, BIPAP needs Home O2 Discharge instructions: No Therapies Physical Therapy: Eval and Treat Occupational Therapy: Eval and Treat Problem/Diagnosis (1) Stenosis of right carotid artery: Status: Acute Code(s): I65.21 - Occlusion and stenosis of right carotid artery Allergies/Procedures Done in Hospital Allergies No Known Allergies Allergy (Verified 09/07/21 11:42) Procedures: None Type of Care/Length of Stay Estimated LOS: Convalescent Care Less Than 30 days Type of Care Needed: Skilled Rehab Potential: Fair Prognosis: Fair Additional Orders/Day of Discharge Day of Discharge: 11/29/24 Dietary and Speech Recommendations Dietitian Recommendations/Changes: Continue regular diet. Will order 120ml ensure plus high protein TID with meals Will monitor weight trends. Discharge Plan Admission Admit Date/Time: 11/27/24 15:09 Attending Provider: Harrison Villarreal Primary Care Provider: Haresh Almanzar Consulting Providers: Harinder Roman; Solitario Zamora; Vivi Chapa; Ayana Wiley; Marylu Elias; Odalis Cintron; Truman Jeffries; Isis Batista; Farhad Swain; Vitor Harkins; Jesus Foy; Cecy Kaur; Kirill Alejandro; Smiley Hinds; Ryan Angelo; Herlinda Poe; Sarwat Simmons; Hernán Simons; Humphrey Gaxiola; Renee Tillman; Lilliana Vance; Deonte Tran; Unique Robert Instructions Additional Instructions / Restrictions: Need outpatient neurology f/u for seizure disorder Discharge Orders/Prescriptions Prescriptions: New levetiracetam 500 mg Tablet 500 mg PO BID Qty: 0 0RF Continued acetaminophen 500 mg capsule 500 mg PO Q6H PRN (Reason: fever or pain) ibuprofen [Advil] 200 mg tablet 200 mg PO Q8H PRN (Reason: fever or pain) aspirin [Breezy Chewable Aspirin] 81 mg tablet,chewable 81 mg PO DAILY atorvastatin 80 mg Tablet 80 mg PO QHS Qty: 30 2RF Discontinued phenytoin sodium extended 100 MG capsule 300 mg PO BREAKFAST phenytoin sodium extended 100 MG capsule 200 mg PO QHS Referrals / Follow Up: Deonte Tran MD [Med Staff - Active Staff] - Within 1 Month Haresh Almanzar MD [Primary Care Provider] - Disposition Disposition (needs filled in before D/C Order can be placed): [facility]
--- NOTE | 2024-11-29 14:43 | PHA.DC.MR.R ---
Pharmacy [place] Med Reconciliation Pharmacy Service has performed discharge medication reconciliation for this patient. The patient's discharge medication list was reviewed for discrepancies and discrepancies were resolved. Medications at Discharge Home Medications aspirin 81 mg chewable tablet (Breezy Chewable Low Dose Aspirin) 81 mg PO DAILY 09/18/24 atorvastatin 80 mg tablet 80 mg PO QHS #30 tabs 09/20/24 acetaminophen 500 mg capsule 500 mg PO Q6H PRN fever or pain 11/25/24 ibuprofen 200 mg tablet (Advil) 200 mg PO Q8H PRN fever or pain 11/25/24 levetiracetam 500 mg tablet 500 mg PO BID #0 tabs 11/29/24
--- NOTE | 2024-11-29 14:44 | CASEMGMT ---
Social Work Precert has been obtained for discharge to [facility]. Physician notified and pt is ready for discharge today. 7000 exemption form completed in [facility]. DC assistant director of security updated and to complete discharge. Disposition: [facility], skilled level of care under convalescent stay ERIC Mary
--- NOTE | 2024-11-29 14:57 | PCM.DC.SUM ---
Providers Date of Admission: 11/27/24 Primary Care Physician: Dr. Haresh Almanzar MD Consultations 11/26/24 14:11 Tele [Consult: Tele-Neurology] Routine Consulting Provider: [facility] Reason for Consult: altered mental status EMERGENT Consult: No Notified: Yes Date Notified: 11/26/24 Time Notified: 15:08 Method of Notification: Answering Service Nursing Unit Staff Notify [facility] of Tele-Neurology Consult: Yes 11/26/24 16:53 Consult: Vascular Surgery Routine Consulting Provider: Deonte Tran Reason for Consult: carotid stenosis EMERGENT Consult: No Notified: Yes Date Notified: 11/26/24 Time Notified: 17:01 Method of Notification: Verbal Reason For Visit: ALTERED MENTAL STATUS/CONFUSION SUSPECTED SEIZURE Diagnosis Discharge Diagnosis (1) Stenosis of right carotid artery: Status: Acute Code(s): I65.21 - Occlusion and stenosis of right carotid artery Medications at Discharge Home Medications aspirin 81 mg chewable tablet (Breezy Chewable Low Dose Aspirin) 81 mg PO DAILY 09/18/24 atorvastatin 80 mg tablet 80 mg PO QHS #30 tabs 09/20/24 acetaminophen 500 mg capsule 500 mg PO Q6H PRN fever or pain 11/25/24 ibuprofen 200 mg tablet (Advil) 200 mg PO Q8H PRN fever or pain 11/25/24 levetiracetam 500 mg tablet 500 mg PO BID #0 tabs 11/29/24 Hospital Course Operations None Procedures None Summary of Care Provided Minutes Spent on Discharge: 33 Hospital Course: Per HPI: JAYLA SCHWARZ, is a 74 M who presents to the emergency room with chief complaint of altered mental status and confusion. Patient has significant past medical history of seizure disorder, hyperlipidemia, obstructive sleep apnea and tobacco use disorder. His daughter who was at bedside was called by the patient earlier today and stated he was complaining of feeling confused and unsure what had happened to him. She states the other day he had run out of his prescription for Dilantin and notes that the empty bottle was sitting on the counter while the prescription she had picked up for him had not been touched and she does not believe he had been taking this. She was therefore unclear whether he had experienced a seizure today or not. She tried to help him walk to the car to get to the emergency department but he had difficulty with ambulation therefore they called the emergency squad to get him here. The daughter expressed that he has apparently signed a DNR order and the patient verbally understood this and deferred to that order as his wishes. Currently the patient remains confused but is alert and oriented to time and place. CT angiogram shows significant carotid artery disease bilaterally but no acute intracranial hemorrhage. Dilantin level was noted to be elevated however it he was being given an initial loading dose in the emergency room and this has subsequently been discontinued. Patient will be admitted to the progressive care unit for observation for suspected seizure and will need case management for discharge planning as this patient lives home alone. Hospital Course: 1. Acute metabolic and toxic encephalopathy secondary to breakthrough seizure as well as elevated levels of Dilantin?74-year-old male with a history of seizures presented to the hospital with altered mental status and confusion. His Dilantin level was elevated and it is felt that he may have had a breakthrough seizure contributing to his confusion as well. MRI was negative for stroke, he did have a carotid duplex as well as a CTA of the head and neck recently that showed a 90% right sided carotid stenosis and a moderate left-sided carotid stenosis on this admission, carotid duplex from 09/19/2024 demonstrated severe 70% stenosis of the right internal carotid and a less than 50% stenosis of the left internal carotid artery. He has an appointment on December 16 with vascular surgery to evaluate for repair. Neurology was consulted and recommended starting him on Keppra he was given a 1 g load and then they recommended discharge on 500 mg p.o. twice daily. He is much better today per the daughter and I discussed with both him and his daughter the plan for discharge today and they expressed understanding of the risks metaphysical into the [facility] and they would like to go today. No other sources were found for his encephalopathy, he did have a leukocytosis however this resolved with no intervention and no antibiotics. Urinalysis has been obtained which was negative for infection. Weight / BMI Weight Weight: 155 lb 6.814 oz Body Mass Index (BMI) 25.8 ABG / Lab / Microbiology Data 11/29/24 04:13 11/29/24 04:13 Laboratory: Laboratory Results - last 24 hr 11/29/24 00:45: Urine Color Yellow, Urine Clarity Clear, Urine pH 6.0, Ur Specific [place] 1.015, Urine Protein 15 H, Urine Glucose (UA) Normal, Urine Ketones Negative, Urine Occult Blood Negative, Urine Nitrite Negative, Urine Bilirubin Negative, Urine Urobilinogen Normal, Ur Leukocyte Esterase Negative, Urine RBC 0 SEEN, Urine WBC 0 SEEN, Ur Squamous Epith Cells 0 SEEN, Urine Bacteria 0 SEEN, Urine Mucus 0 SEEN 11/29/24 04:13: WBC 9.3, RBC 4.40 L, Hgb 14.0, Hct 39.9 L, MCV 90.7, MCH 31.8, MCHC 35.1, RDW Std Deviation 43.9, RDW Coeff of Jalyn 13.3, Plt Count 168, MPV 11.8, Immature Gran % (Auto) 0.200, Neut % (Auto) 61.0, Lymph % (Auto) 29.1, Sheridan % (Auto) 8.3, Eos % (Auto) 1.2, Baso % (Auto) 0.2, Absolute Neuts (auto) 5.7, Absolute Lymphs (auto) 2.71, Nucleated RBC % 0, Sodium 138, Potassium 3.4, Chloride 105, Carbon Dioxide 22.2, Anion Gap 11, BUN 15, Creatinine 0.65 L, Estim Creat Clear Calc 71.54, Est GFR (MDRD) Non-Af 100, BUN/Creatinine Ratio 23.8 H, Glucose 114 H, Calcium 9.1 D/C Instructions DC O2, CPAP, BIPAP Needs Home O2 Discharge instructions: No Meaningful Use Info Meaningful Use Meaningful Use Diagnoses (Choose all that apply): None applicable Ischemic Stroke Statin Dosing Therapy Reference: STATIN DOSE THERAPY REFERENCE: * Patients > 75 years receive moderate or high dose statin therapy. * Patients 75 years or YOUNGER should receive HIGH intensity statin dose unless contraindicated. You will be required to document reason for non-treatment if statin daily dose does not meet guidelines. HIGH DOSE STATIN THERAPY DAILY Atorvastatin > than or = to 40 mg Rosuvastatin > than or = to 20 mg Amlodipine + Atorvastatin > than or = to 2.5/40 mg Ezetimibe + Simvastatin 10/80 mg Simvastatin 80mg Discharge Plan Admission Admit Date/Time: 11/27/24 15:09 Attending Provider: Harrison Villarreal Primary Care Provider: Haresh Almanzar Consulting Providers: Harinder Roman; Solitario Zamora; Vivi Chapa; Ayana Wiley; Marylu Elias; Odalis Cintron; Truman Jeffries; Isis Batista; Farhad Swain; Vitor Harkins; Jesus Foy; Cecy Kaur; Kirill Alejandro; Smiley Hinds; Ryan Angelo; Herlinda Poe; Sarwat Simmons; Hernán Simons; Humphrey Gaxiola; Renee Tillman; Lilliana Vance; Deonte Tran; Unique Robert Instructions Additional Instructions / Restrictions: Need outpatient neurology f/u for seizure disorder Discharge Orders/Prescriptions Prescriptions: New levetiracetam 500 mg Tablet 500 mg PO BID Qty: 0 0RF Continued acetaminophen 500 mg capsule 500 mg PO Q6H PRN (Reason: fever or pain) ibuprofen [Advil] 200 mg tablet 200 mg PO Q8H PRN (Reason: fever or pain) aspirin [Breezy Chewable Aspirin] 81 mg tablet,chewable 81 mg PO DAILY atorvastatin 80 mg Tablet 80 mg PO QHS Qty: 30 2RF Discontinued phenytoin sodium extended 100 MG capsule 300 mg PO BREAKFAST phenytoin sodium extended 100 MG capsule 200 mg PO QHS Referrals / Follow Up: Deonte Tran MD [Med Staff - Active Staff] - Within 1 Month Haresh Almanzar MD [Primary Care Provider] - Disposition Disposition (needs filled in before D/C Order can be placed): Nursing Home Facility Charges/Coding Visit Charges Inpatient E&M: 79250 Disch Hosp >30min
[2024-11-29 15:00] VITALS: BP 123/94; PULSE 91; RESP 18; TEMP 36.5; O2SAT 98
--- NOTE | 2024-11-29 15:02 | CASEMGMT ---
Discharge Planning Discharge orders, signed med list, and transport time sent to [facility]. Physicians will transport pt by wheelchair at 5p. Nursing and SW updated. Nursing updated both pt and his daughter. Adrianna Gooden DC Planning Asst.
--- NOTE | 2024-11-29 16:01 | NURSING ---
This RN called [facility] and gave report to KARSTEN Morfin and gave report
== END 2024-11-29 16:51 | disposition skilled nursing facility (03) | DRG 67 ==
LOC: ED 21:30 → PCU 22:01
PROVIDERS: Student in an Organized Health Care Education/Training Program; Admitting Provider Family Medicine; Emergency Provider Emergency Medicine; PCP Family Medicine; Referring Provider Family Medicine; Visit Provider Family Medicine
DX: I65.23 Occlusion and stenosis of bilateral carotid arteries (principal); G92.8 Other toxic encephalopathy; G40.909 Epilepsy, unspecified, not intractable, without status epilepticus; E78.5 Hyperlipidemia, unspecified; G47.33 Obstructive sleep apnea (adult) (pediatric); Z79.82 Long term (current) use of aspirin; R53.1 Weakness; Z79.02 Long term (current) use of antithrombotics/antiplatelets; Z99.89 Dependence on other enabling machines and devices; Z79.899 Other long term (current) drug therapy; Z79.1 Long term (current) use of non-steroidal anti-inflammatories (NSAID); Z90.49 Acquired absence of other specified parts of digestive tract; Z98.890 Other specified postprocedural states; Z87.891 Personal history of nicotine dependence
CPT/HCPCS: 36415; 70450; 70496; 70498; 70551; 80048; 80076; 80185; 81001; 84484; 85025; 85610; 85730; 93005; 97163; 97166; 97530; 97535; 99285; 99406; Q9967; A4216

== ENCOUNTER 2025-01-21 13:49 | Inpatient (IN) | payer MEDICARE, SELFPAY ==
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
[2025-01-21] VITALS (21 sets, daily range): BP systolic 110–145; BP diastolic 42–83; PULSE 55–79; RESP 10–23; TEMP 36.2–36.8; O2SAT 88–100; BMI 26.0; BMI 27.3
[2025-01-21] MEDS: Lactated Ringers 1,000 ML 15 ML IV (09:56)
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
--- NOTE | 2025-01-21 11:30 | PLAQ_PTH ---
PATIENT: JAYLA SCHWARZ LOC: ICU U#:[id number] AGE/SX: 74/M ROOM: [place] [address] RE01/21/[address]: Dr. Deonte Tran MD : [id number] BED: 1 DIS: 01/22/2025 SPEC #: [id number] RECD: 01/21/25 16:03 STATUS: YOLIS REHema #: [id number] VANNESSA: 01/21/25 11:[address]: Deonte Tran DEPT: SURGICAL PATHOLOGY RECD BY: Edgardo Marquez ENTERED: 01/22/25 09:33 SP TYPE: PLAQUE OTHR DR: Dr. Haresh Almanzar MD Tissues: A - PLAQUE Procedures: Decalcification bone/plaque Surgery Specimen Level III HEADER OPERATION: Right carotid endarterectomy PRE-OP DIAGNOSIS: Stenosis of right carotid artery TISSUE SUBMITTED: A- Right carotid plaque MICROSCOPIC DIAGNOSIS A. Right carotid artery, plaque, endarterectomy: - Fibrointimal hyperplasia with calcification, consistent with atherosclerotic plaque. GROSS DESCRIPTION A. Received in formalin labeled with the patient's name and date of . Designated as right carotid plaque is a 2.5 x 1.3 x 1.0 cm medley-yellow calcified plaque. Information Technology Analyst sections are submitted in 1 cassette, following decalcification. NE 01/22/2025 CPT:99845,[id number]
[2025-01-21] MEDS: Cefazolin 2 GM in 0.9% Normal Saline (100mL Bag) 100 ML IV (11:35)
[2025-01-21] MEDS: Bupivacaine Mpf 0.5% 30 ML VIAL (13:58)
--- NOTE | 2025-01-21 15:16 | PCM.POST.ANE ---
Anesthesia: Postop Eval I Current Vital Signs Temperature: 97.2 F Pulse Rate: 70 Blood Pressure: 124/44 Respiratory Rate: 18 Pulse Ox: 100 Oxygen Delivery Method: Room Air Assessment Airway patent: Yes Spontaneous unlabored respirations: Yes nausea: No Vomiting: No Anesthesia Complication: No Fluid Hydration Crystalloid volume administer (ml): 2,000 Total IV fluid infused: 2,000 Progress Note Anesthesia document: Postop Eval 1 completed: Yes
--- NOTE | 2025-01-21 15:21 | PCM.OPRPT ---
Operative Report (Standard) Operative Information Date of Procedure: 01/21/25 Pre-Operative Diagnosis: Asymptomatic right internal carotid artery stenosis Post-Operative Diagnosis: Same Surgery/Procedure Performed: Right carotid endarterectomy principal consulting engineer: Yes Reed Man: Rolando Lanza Tasks completed by assistant health educator: Opening, Closing, Opening & closing, Hemostasis: Tie, Hemostasis: Electrocautery and Retracting Type of Anesthesia: General RN Documented Start/Stop Times: Operation Date: 01/21/25 11:30 Case Time Into Pre-Op 01/21/25 09:38 Anesthesia Start 01/21/25 11:10 Into Room 01/21/25 11:10 Procedure Start 01/21/25 11:50 Procedure End 01/21/25 14:03 Anesthesia End 01/21/25 14:13 Out of Room 01/21/25 14:13 Into Recovery 01/21/25 14:14 Out of Recovery 01/21/25 14:59 Procedure Start Time: 11:50 Procedure Stop Time: 14:00 Select all DRAINS/GRAFTS/IMPLANTS that apply: Graft Graft details: bovine pericardial patch Estimated Blood Loss: 25 Specimen collected: Yes Description of specimen(s) removed: plaque Description of surgery: HPI: Patient is a 74-year-old male with an asymptomatic right internal carotid artery stenosis. He presents for elective carotid endarterectomy for stroke risk reduction. Description of procedure: Upon obtaining form consent and verification correct patient procedure and site the patient was taken to the operating was placed under general anesthesia. He was then positioned prepped and draped in usual sterile fashion a timeout was performed. Oblique incision was made along the anterior border the sternocleidomastoid and Bovie used to dissect down through the subcutaneous tissue to the level the platysma. The platysma was then divided and self-retaining retractors put in position then further dissection carried down to the sternocleidomastoid. This was then mobilized along its anterior border retracting laterally exposing the carotid sheath. Sharp dissection was then used to dissect through the jugular vein with the facial vein identified, ligated with silk ties, and divided. The jugular vein was then retracted laterally exposing the carotid vessels and sharp dissection was used to dissect free the proximal common carotid artery with care taken identify and protect the vagus nerve. A right angle was used to place a vessel loop around the proximal common carotid artery and attention was then turned to the internal carotid artery. Sharp dissection used to dissect free the internal carotid artery beyond the palpable and visible plaque with care taken to identify and protect the muscle nerve. A right angle did place a vessel loop beyond the area of plaque the patient was then heparinized allowed to circulate for 3 minutes. Sharp dissection used dissect free the external carotid artery and a right angle was placed vessel loop. Vessels then clamped first the internal followed by the common the external. A longitudinal arteriotomy was created with 11 blade on the common carotid artery and extended with Brady scissors on the internal carotid artery beyond the area of plaque. A 12 [place] shunt was then placed first distally in the internal carotid along the backbleed before placing proximally in the common carotid artery. The shunt was interrogated with Doppler and found to be patent with low resistance signal. We then performed her endarterectomy with a freer elevator with satisfactory endpoint distally in the internal carotid artery and eversion endarterectomy of the external carotid artery. Then flushed with heparinized saline to clear debris in the distal endpoint tacked with 7-0 Prolene interrupted sutures. A bovine pericardial patch was then secured in position using 6-0 Prolene in a running fashion. Prior to clearing suture line the shunt was removed and the vessel was backbled. After completing the suture line the internal carotid artery was unclamped allowed to backbleed into the bifurcation and then reoccluded at the origin. Clamps were then removed from the external and common carotid artery allowing 10 heartbeats of antegrade flow to flush into the external carotid artery before reestablishing antegrade flow in the internal carotid artery. After clamps removed satisfactory stasis was observed in the vessel interrogated with Doppler. The internal carotid arteries patent with low resistance signal in the external carotid artery patent with normal signal. Heparin was then reversed with protamine and a 19 [place] channel HENRRY placed via separate stab incision. The incision was then closed with 2-0 Vicryl, 3-0 Vicryl, 4 Monocryl and Dermabond for the skin. The patient was in with anesthesia local extremities command with cranial nerves intact. He was taken recovery room with anticipated admission to intensive care unit for hemodynamic and neurologic monitoring Surgical Findings: See above Complications Complications: No
[2025-01-21 18:08] LABS: Creatinine, Serum 0.73 mg/dL (0.70-1.20); EST Glomerular Filtration Rate 96 (>60); Estimated Creatinine Clearance 77.55 ml/min (50-250)
[2025-01-21] MEDS: Cefazolin 1 GM/50 ML BAG IV (19:59)
[2025-01-21] MEDS: 0.9% Normal Saline (250mL Bag) 250 ML 15 ML IV (20:02)
--- NOTE | 2025-01-21 22:25 | POSTOPAN2_ITS ---
Anesthesia Postop Eval I Sum Postop Eval Completion status Anesthesia document: Postop Eval 1 completed: Yes Anesthesia Postop Eval I Summary Anesthesia Postop Eval I Summary: Anesthesia Postop Eval I: Assessment Summary Airway patent Yes 01/21/25 15:17 CABLE TOOL OPERATOR.ACAR Spontaneous unlabored Yes 01/21/25 15:17 CABLE TOOL OPERATOR.ACAR respirations Mental status nausea No 01/21/25 15:17 CABLE TOOL OPERATOR.ACAR Vomiting No 01/21/25 15:17 CABLE TOOL OPERATOR.ACAR Anesthesia Postop Eval I: Fluid Summary Crystalloid volume administer 2,000 01/21/25 15:17 CABLE TOOL OPERATOR.ACAR (ml) Colloids volume administered ( ml) Blood Product volume administered (ml) Total IV fluid infused 2,000 01/21/25 15:17 CABLE TOOL OPERATOR.ACAR Anesthesia Postop Eval I: Summary Notes Anesthesia Complication No 01/21/25 15:17 CABLE TOOL OPERATOR.ACAR Anesthesia Complication Comment: Post-operative progress note Anesthesia: Postop Eval II Evaluation Mental status: Awake and Calm Pain Level: 1 nausea: No Vomiting: No Complications Anesthesia Complication: No
--- NOTE | 2025-01-21 22:25 | PCM.POSTANE2 ---
Anesthesia Postop Eval I Sum Postop Eval Completion status Anesthesia document: Postop Eval 1 completed: Yes Anesthesia Postop Eval I Summary Anesthesia Postop Eval I Summary: Anesthesia Postop Eval I: Assessment Summary Airway patent Yes 01/21/25 15:17 HEALTH EQUIPMENT SERVICER.ACAR Spontaneous unlabored Yes 01/21/25 15:17 HEALTH EQUIPMENT SERVICER.ACAR respirations Mental status nausea No 01/21/25 15:17 HEALTH EQUIPMENT SERVICER.ACAR Vomiting No 01/21/25 15:17 HEALTH EQUIPMENT SERVICER.ACAR Anesthesia Postop Eval I: Fluid Summary Crystalloid volume administer 2,000 01/21/25 15:17 HEALTH EQUIPMENT SERVICER.ACAR (ml) Colloids volume administered ( ml) Blood Product volume administered (ml) Total IV fluid infused 2,000 01/21/25 15:17 HEALTH EQUIPMENT SERVICER.ACAR Anesthesia Postop Eval I: Summary Notes Anesthesia Complication No 01/21/25 15:17 HEALTH EQUIPMENT SERVICER.ACAR Anesthesia Complication Comment: Post-operative progress note Anesthesia: Postop Eval II Evaluation Mental status: Awake and Calm Pain Level: 1 nausea: No Vomiting: No Complications Anesthesia Complication: No
[2025-01-21] MEDS: levETIRAcetam 750 MG Tablet PO (22:44)
[2025-01-21] MEDS: Atorvastatin Calcium 80 MG Tablet PO (22:44)
[2025-01-22] VITALS (13 sets, daily range): BP systolic 93–132; BP diastolic 37–72; PULSE 57–96; RESP 12–24; TEMP 36.3–37.1; O2SAT 95–100; BMI 27.1
[2025-01-22] MEDS: Cefazolin 1 GM/50 ML BAG IV (03:58)
[2025-01-22 05:16] LABS: Absolute Neutrophil Count 10.8 X10^3/uL (2.0-7.7); Basophil# 0.03 X10^3/uL; Basophil% 0.2 % (0-1); Eosinophil# 0.01 X10^3/uL; Eosinophils% 0.1 % (0-5); Hematocrit 32.6 % (40-54); Hemoglobin 11.3 g/dL (13.0-16.5); Mean Corp Hgb Conc 34.7 g/dL (32-36); Mean Corpuscular Hgb 31.4 pg (27.0-32.0); Mean Corpuscular Volume 90.6 fL (80-94); Monocyte# 1.11 X10^3/uL; NRBC Flagged by Analyzer 0 % (0-5); Neutrophil % 78.3 % (47-70); Platelet Count 154 K/mm3 (150-450); RBC Distribution Width CV 12.8 % (11.6-14.6); RBC Distribution Width SD 42.6 fl (35.1-43.9); White Blood Count 13.8 K/mm3 (4.4-11.0)
--- NOTE | 2025-01-22 08:21 | PCM.PN.SRG ---
Subjective Subjective I saw patient this morning resting comfortably in bed. He denies any significant incisional site pain, headache, vision changes, numbness/paresthesias, weakness. He reports he is voiding without difficulty. He has not yet been out of bed. He has been tolerating liquids. His BPs have been stable this morning. He has had lessening output from the HENRRY drain overnight. He is eager for discharge. Objective Data Objective Data Vital Signs: Vital Signs Temp Pulse Resp BP Pulse Ox O2 Del Method O2 Flow Rate 98.7 F 69 18 128/45 H 95 Room Air 2 01/22/25 06:00 01/22/25 07:00 01/22/25 07:00 01/22/25 07:00 01/22/25 07:00 01/22/25 07:00 01/22/25 06:00 Oxygen Flow Rate (L/min) 2 Oxygen Delivery Method Room Air Weight: 162 lb 11.2 oz Body Mass Index (BMI) 27.1 Intake & Output: Intake and Output for Last 24 Hours 01/20/25 01/21/25 01/22/25 23:59 23:59 23:59 Intake Total 156.75 / 156.75 50 / 50 Output Total 1010 / 1010 1410 / 1410 Balance -853.25 / -853.25 -1360 / -1360 Lab / Micro Data 01/22/25 05:00 01/21/25 17:30 Labs: Laboratory Results - last 24 hr 01/21/25 09:45: Blood Type O POSITIVE, Antibody Screen NEGATIVE 01/21/25 17:30: Creatinine 0.73, Estim Creat Clear Calc 77.55, Est GFR (MDRD) Non-Af 96 01/22/25 05:00: WBC 13.8 H, RBC 3.60 L, Hgb 11.3 L, Hct 32.6 L, MCV 90.6, MCH 31.4, MCHC 34.7, RDW Std Deviation 42.6, RDW Coeff of Jalyn 12.8, Plt Count 154, MPV 12.0, Immature Gran % (Auto) 0.400, Neut % (Auto) 78.3 H, Lymph % (Auto) 13.0 L, [place] % (Auto) 8.0, Eos % (Auto) 0.1, Baso % (Auto) 0.2, Absolute Neuts (auto) 10.8 H, Absolute Lymphs (auto) 1.80, Nucleated RBC % 0 Physical Exam Const alert, oriented x3 and no apparent distress General Appearance: cooperative and comfortable HEENT normocephalic, head/scalp atraumatic, hearing grossly normal bilaterally, external ears normal and external nose normal Eyes EOMs intact bilaterally General Eye: normal appearance of both eyes Neck Neck Narrative: R neck incision site with skin glue intact, no dehiscence, mild ecchymosis, no focal edema/hematoma, soft to palpation throughout. HENRRY drain with 5-10 mL serosanguineous drainage. Resp normal respiratory effort, normal air movement, no retractions and no use of accessory muscles Effort and Inspection: able to speak in complete sentences; Negative for labored, grunting or stridor Cardio Rate: regular rate Rhythm: regular rhythm Extremity normal to inspection, no joint enlargement and no clubbing, cyanosis or edema Skin no rashes or lesions noted General Skin Exam: no breakdown Trauma: no lacerations or abrasions Neuro oriented x3, CN's II-XII intact bilaterally, moves all extremities and no focal motor deficits Speech: speech normal Psych mental status grossly normal Appearance: grossly normal Attitude: calm and engaged Activity / Motor Behavior: appropriate eye contact Speech: normal speech Mood & Affect: euthymic mood Assessment & Plan Assessment/Plan (1) Stenosis of right carotid artery: PLAN: Plan He is POD#1 from R CEA> HENRRY drain removed without issue this morning, he tolerated this well. Incision site is satisfactory in appearance without evidence of hematoma. Will plan for regular diet this morning and for him to get up to the chair and ambulate with nursing or PT. If he tolerates well then anticipate discharge to home later this morning. Charges/Coding Procedures Integumentary [id number]: [id number] Global Visit
[2025-01-22] MEDS: levETIRAcetam 750 MG Tablet PO (08:59)
[2025-01-22] MEDS: Aspirin 81 MG TAB.CHEW PO (08:59)
[2025-01-22 09:35] LABS: ACT Activated Clotting Time 239 sec (74-137)
[2025-01-22 09:35] LABS: ACT Activated Clotting Time 262 sec (74-137)
--- NOTE | 2025-01-22 10:38 | CASEMGMT ---
KARSTEN SRINIVASAN Assessment Face to Face with patient for initial transition planning/care coordination assessment. KARSTEN SRINIVASAN introduced self and role at [facility], pt voices understanding. Pt is A&Ox4 and is resting comfortably in the chair and is calm. Care providers, pharmacy, and demographics verified. Admitting dx: Rt Carotid Endarterectomy LACE Strata: 2 PCP: Haresh Almanzar Specialists: [place] (Vascular). Denies further Preferred Pharmacy: [facility] Insurance: [place] Secure Prescription Benefit: Yes LNOK: Rachel (Daughter) Living Arrangements: Pt lives alone on the 3rd story of an apartment complex with an elevator to get to his floor ADLs/IADLs: States indep and denies concerns Transportation: Pt's daughter will be driving the pt home today DME: CPAP @ [facility] with no additional oxygen. Denies further DME uses or needs [facility] Pt?s goal: home Plan: Home today, anticipate no additional needs. Pt states that his daughter provides him with great support when he needs it and states that he feels safe returning home today and denies the need for HHC or OP Tx. Pt denies further questions or concerns at this time. Cesar Kahn RN, CM
--- NOTE | 2025-01-22 10:39 | PCM.DC.SUM ---
Providers Date of Admission: 01/21/25 Primary Care Physician: Dr. Haresh Almanzar MD Reason For Visit: Right Carotid Endarterectomy Diagnosis Discharge Diagnosis (1) Stenosis of right carotid artery: Status: Chronic Code(s): I65.21 - Occlusion and stenosis of right carotid artery Plan He is POD#1 from R CEA> HENRRY drain removed without issue this morning, he tolerated this well. Incision site is satisfactory in appearance without evidence of hematoma. Will plan for regular diet this morning and for him to get up to the chair and ambulate with nursing or PT. If he tolerates well then anticipate discharge to home later this morning. Medications at Discharge Home Medications aspirin 81 mg chewable tablet (Breezy Chewable Low Dose Aspirin) 81 mg PO DAILY HEART HEALTH 09/18/24 atorvastatin 80 mg tablet 80 mg PO QHS CHOLESTEROL #30 tabs 09/20/24 acetaminophen 500 mg capsule 500 mg PO Q6H PRN fever or pain 11/25/24 ibuprofen 200 mg tablet (Advil) 200 mg PO Q8H PRN fever or pain 11/25/24 levetiracetam 750 mg tablet (Keppra) 750 mg PO BID seizures 01/21/25 oxycodone 5 mg tablet 5 mg PO Q8H PRN PRN Pain Score 4-10 3 days #9 tabs 01/22/25 Hospital Course Summary of Care Provided Hospital Course: Mr. Rahul Thompson is a 74 y/o male who underwent planned R CEA on 01/21/25. He tolerated the procedure well and it was without complication. Postoperatively, he was routinely admitted to the ICU for ongoing hemodynamic and neurologic monitoring. He has remained hemodynamically stable and neurologically intact to his baseline throughout his admission. His HENRRY drain was removed this morning POD#1 without issue and incision site satisfactory in appearance. He has been voiding to his baseline without difficulty, tolerating a normal diet, and ambulating to his baseline. He is discharged to his home with his daughter in stable condition with outpatient follow-up scheduled on 02/04/25. Physical Exam Const alert, oriented x3 and no apparent distress General Appearance: cooperative and comfortable HEENT normocephalic, head/scalp atraumatic, hearing grossly normal bilaterally, external ears normal and external nose normal Eyes EOMs intact bilaterally General Eye: normal appearance of both eyes Neck Neck Narrative: R neck incision site with skin glue intact, no dehiscence, mild ecchymosis, no focal edema/hematoma, soft to palpation throughout. HENRRY drain with 5-10 mL serosanguineous drainage. Resp normal respiratory effort, normal air movement, no retractions and no use of accessory muscles Effort and Inspection: able to speak in complete sentences; Negative for labored, grunting or stridor Cardio Rate: regular rate Rhythm: regular rhythm Extremity normal to inspection, no joint enlargement and no clubbing, cyanosis or edema Skin no rashes or lesions noted General Skin Exam: no breakdown Trauma: no lacerations or abrasions Neuro oriented x3, CN's II-XII intact bilaterally, moves all extremities and no focal motor deficits Speech: speech normal Psych mental status grossly normal Appearance: grossly normal Attitude: calm and engaged Activity / Motor Behavior: appropriate eye contact Speech: normal speech Mood & Affect: euthymic mood Weight / BMI Weight Weight: 162 lb 11.2 oz Body Mass Index (BMI) 27.1 ABG / Lab / Microbiology Data 01/22/25 05:00 01/21/25 17:30 Laboratory: Laboratory Results - last 24 hr 01/21/25 09:45: Antibody Screen NEGATIVE 01/21/25 12:46: Activated Clotting Time 262 H 01/21/25 13:23: Activated Clotting Time 239 H 01/21/25 17:30: Creatinine 0.73, Estim Creat Clear Calc 77.55, Est GFR (MDRD) Non-Af 96 01/22/25 05:00: WBC 13.8 H, RBC 3.60 L, Hgb 11.3 L, Hct 32.6 L, MCV 90.6, MCH 31.4, MCHC 34.7, RDW Std Deviation 42.6, RDW Coeff of Jalyn 12.8, Plt Count 154, MPV 12.0, Immature Gran % (Auto) 0.400, Neut % (Auto) 78.3 H, Lymph % (Auto) 13.0 L, [place] % (Auto) 8.0, Eos % (Auto) 0.1, Baso % (Auto) 0.2, Absolute Neuts (auto) 10.8 H, Absolute Lymphs (auto) 1.80, Nucleated RBC % 0 D/C Instructions Discharge Diet: No restrictions May shower in (days): 1 Weight Bearing Status: Weight bearing as tolerated Lifting Restricted to (Lbs): 20 Lifting Restrictions: Do not lift greater than 20 pounds for 3 weeks Call your doctor if your incision/area has: Continuous Slow Oozing, Sudden Increased Bleeding and Foul Smelling Discharge Call your doctor if you observe: Fever of 101 or Higher and Uncontrolled pain DC O2, CPAP, BIPAP Needs Home O2 Discharge instructions: No Additional Instructions: INCISION CARE: You have a small bandage on your neck over the site from which the surgical drain was removed. You may remove this bandage tomorrow. As long as there is no residual drainage, you may leave this open to air. If you do notice some continued drainage, you may re-cover with a Band-Aid. Your neck incision site is covered with skin glue which will continue to protect it. The skin glue will peel/flake off on its own over the next few weeks. Please do not pick at it. You may shower tomorrow. It is okay for soap and water to rinse over the incision site, pat to dry. Do not submerge the incision site in water such as to take a bath or go swimming etc. for 3 weeks. MEDICATION INSTRUCTIONS You have been prescribed oxycodone 5mg tablet to be taken by mouth every 8 hours as needed for pain. You may take this in addition to Tylenol as needed. You should not drive or operate machinery while taking this medication. Do not take this medication in combination with any other prescription pain medications. Call the office at [phone] with any questions about your medications ACTIVITY INSTRUCTIONS Do not lift greater than 20 pounds for 3 weeks. Otherwise, please continue with activity as tolerated. Do not drive until you can turn your head well enough to safely check your blind spots. FOLLOW-UP INSTRUCTIONS You are scheduled for follow-up in the office on 02/04/25. If you need to change this appointment or have any other questions/concerns, please call the office at [phone]. Please Follow Up With: Marylu Jaramillo PA When: 02/04/2025 Meaningful Use Info Meaningful Use Meaningful Use Diagnoses (Choose all that apply): None applicable Ischemic Stroke Statin Dosing Therapy Reference: STATIN DOSE THERAPY REFERENCE: * Patients > 75 years receive moderate or high dose statin therapy. * Patients 75 years or YOUNGER should receive HIGH intensity statin dose unless contraindicated. You will be required to document reason for non-treatment if statin daily dose does not meet guidelines. HIGH DOSE STATIN THERAPY DAILY Atorvastatin > than or = to 40 mg Rosuvastatin > than or = to 20 mg Amlodipine + Atorvastatin > than or = to 2.5/40 mg Ezetimibe + Simvastatin 10/80 mg Simvastatin 80mg Discharge Plan Admission Admit Date/Time: 01/21/25 09:09 Attending Provider: Deonte Tran Primary Care Provider: Haresh Almanzar Instructions Additional Instructions / Restrictions: INCISION CARE: You have a small bandage on your neck over the site from which the surgical drain was removed. You may remove this bandage tomorrow. As long as there is no residual drainage, you may leave this open to air. If you do notice some continued drainage, you may re-cover with a Band-Aid. Your neck incision site is covered with skin glue which will continue to protect it. The skin glue will peel/flake off on its own over the next few weeks. Please do not pick at it. You may shower tomorrow. It is okay for soap and water to rinse over the incision site, pat to dry. Do not submerge the incision site in water such as to take a bath or go swimming etc. for 3 weeks. MEDICATION INSTRUCTIONS You have been prescribed oxycodone 5mg tablet to be taken by mouth every 8 hours as needed for pain. You may take this in addition to Tylenol as needed. You should not drive or operate machinery while taking this medication. Do not take this medication in combination with any other prescription pain medications. Call the office at [phone] with any questions about your medications ACTIVITY INSTRUCTIONS Do not lift greater than 20 pounds for 3 weeks. Otherwise, please continue with activity as tolerated. Do not drive until you can turn your head well enough to safely check your blind spots. FOLLOW-UP INSTRUCTIONS You are scheduled for follow-up in the office on 02/04/25. If you need to change this appointment or have any other questions/concerns, please call the office at [phone]. Discharge Orders/Prescriptions Prescriptions: New oxycodone 5 mg Tablet 5 mg PO Q8H PRN PRN (Reason: Pain Score 4-10) 3 Days Qty: 9 0RF Continued acetaminophen 500 mg capsule 500 mg PO Q6H PRN (Reason: fever or pain) ibuprofen [Advil] 200 mg tablet 200 mg PO Q8H PRN (Reason: fever or pain) aspirin [Breezy Chewable Aspirin] 81 mg tablet,chewable 81 mg PO DAILY atorvastatin 80 mg Tablet 80 mg PO QHS Qty: 30 2RF levetiracetam [Keppra] 750 mg tablet 750 mg PO BID Referrals / Follow Up: Haresh Almanzar MD [Primary Care Provider] - Disposition Disposition (needs filled in before D/C Order can be placed): Home, Self Care Charges/Coding Procedures Integumentary [id number]: [id number] Global Visit
== END 2025-01-22 11:45 | disposition home or self-care (01) | DRG 39 ==
PROVIDERS: Admitting Provider Surgery Trauma Surgery; PCP Family Medicine; Referring Provider Surgery Trauma Surgery; Visit Provider Surgery Trauma Surgery
PROC: 03CM0ZZ Extirpation of Matter from Right External Carotid Artery, Open Approach (ICD-10-PCS; CPT 35301; principal; 2025-01-21 11:10)
DX: I65.21 Occlusion and stenosis of right carotid artery (principal); E78.5 Hyperlipidemia, unspecified; F17.200 Nicotine dependence, unspecified, uncomplicated; Z79.82 Long term (current) use of aspirin; Z99.89 Dependence on other enabling machines and devices; Z85.118 Personal history of other malignant neoplasm of bronchus and lung; Z90.49 Acquired absence of other specified parts of digestive tract
CPT/HCPCS: 82565; 85025; 85347; 86850; 86900; 86901; 88304; 88311; 94668; A4648; J2405